=== PATIENT | male | born 1980 | race Caucasian/White ===

== ENCOUNTER 2017-09-09 11:23 | Emergency (ER) | payer OTHER ==
--- NOTE | 2017-09-09 12:01 | ED ---
Back Pain HPI - General Chief Complaint: Back Pain/Injury Stated Complaint: Hip Pain Time Seen by Provider: 09/09/17 11:45 Source: patient, RN notes reviewed Mode of arrival: ambulatory Limitations: no limitations - History of Present Illness Initial Comments: This is a 37-year-old male presents emergency Department chief complaint of left hip pain. Patient states the pain started last week or so has progressively gotten worse. States pain rates from this anterior left hip and radiates down to his left knee. He states like a lightning bolt. States pain is not constant says when it happens, debilitating. 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 He states when he does climb trees that his chainsaw hangs on his left hip. Patient denies any low back pain this time denies any bowel or bladder incontinence or retention. He doesn't at days been seeing a chiropractor over the last 3-4 months and regular basis. Patient has no mental abdominal pain, dysuria or hematuria. - Related Data Previous Rx's Medication Instructions Recorded Cyclobenzaprine [Flexeril] 10 mg PO TID PRN #15 tab 09/09/17 Ibuprofen [Motrin] 600 mg PO Q8HR PRN #30 tab 09/09/17 Allergies Allergy/AdvReac Type Severity Reaction Status Date / Time No Known Allergies Allergy Verified 09/09/17 11:40 Review of Systems ROS Statement: Those systems with pertinent positive or pertinent negative responses have been documented in the HPI. ROS Other: All systems not noted in ROS Statement are negative. Past Medical History Past Medical History: No Reported History History of Any Multi-Drug Resistant Organisms: None Reported Past Surgical History: Orthopedic Surgery Additional Past Surgical History / Comment(s): rt hand, vasectomy Past Psychological History: No Psychological Hx Reported Smoking Status: Current every day smoker Past Alcohol Use History: None Reported Past Drug Use History: None Reported General Exam Limitations: no limitations General appearance: alert, in no apparent distress Respiratory exam: Present: normal lung sounds bilaterally. Absent: respiratory distress, wheezes, rales, rhonchi, stridor Cardiovascular Exam: Present: regular rate, normal rhythm, normal heart sounds. Absent: systolic murmur, diastolic murmur, rubs, gallop, clicks GI/Abdominal exam: Present: soft, normal bowel sounds. Absent: distended, tenderness, guarding, rebound, rigid Extremities exam: Present: other (Lower extremity neurovascular intact pedal pulses equal bilaterally there is no discoloration or change warmth. Patient has no localized tenderness to left hip but has pain with left straight leg raise negative Tucker's test) Back exam: Present: full ROM. Absent: tenderness, paraspinal tenderness, vertebral tenderness Neurological exam: Present: reflexes normal. Absent: motor sensory deficit Skin exam: Present: warm, dry, intact, normal color. Absent: rash Course Vital Signs 09/09/17 11:36 Temperature 98.5 F Pulse Rate 89 Respiratory 20 Rate Blood Pressure 133/70 O2 Sat by Pulse 98 Oximetry Medical Decision Making - Medical Decision Making This is a 37-year-old male presented for left hip pain left leg pain. Patient states pain over the last week that radiates down his leg. Patient's pains were consistent with lumbar radiculopathy. Patient did have x-rays of his hip and lumbar spine lumbar spine unremarkable other some degenerative changes of his left hip. Patient's pain is intermittent and shooting type pain. Patient will be given a shot of steroids in the emergency department, started anti- inflammatories and muscle relaxers. He will follow-up with his PCP and chiropractor. Return parameters were discussed. Disposition Clinical Impression: Lumbar radiculopathy, Left hip pain Disposition: HOME SELF-CARE Condition: Stable Instructions: Lumbar Radiculopathy (ED) Additional Instructions: Please return to the Emergency Department if symptoms worsen or any other concerns. Prescriptions: Cyclobenzaprine [Flexeril] 10 mg PO TID PRN #15 tab PRN Reason: Muscle Spasm Ibuprofen [Motrin] 600 mg PO Q8HR PRN #30 tab PRN Reason: Pain Is patient prescribed a controlled substance at d/c from ED?: No Referrals: Brad Rowland MD [Primary Care Provider] - 1-2 days Time of Disposition: 12:41
--- NOTE | 2017-09-09 12:33 | XR ---
EXAMINATION TYPE: XR lumbosacral spine min 4V , 5 VIEWS DATE OF EXAM ORDERED: 09/09/2017 HISTORY: Pain. COMPARISON: None. FINDINGS: Vertebral body height and alignment are maintained. There is no spondylolysis or spondylol isthesis. No fractures are seen. The facets are unremarkable. The pedicles are intact. IMPRESSION: NORMAL LUMBOSACRAL SPINE.
--- NOTE | 2017-09-09 12:34 | XR ---
EXAMINATION TYPE: XR Hip Complete LT , 2 VIEWS DATE OF EXAM ORDERED: 09/09/2017 HISTORY: Pain. COMPARISON: None. FINDINGS: There is mild superior joint space loss. There is minimal degenerative change. No fracture or dislocation is seen. IMPRESSION: 1. NO ACUTE OSSEOUS LESION. 2. MILD DEGENERATIVE CHANGE.
[2017-09-09] MEDS ORDERED: DEXAMETHASONE SOD PHOSPHATE 10 MG/ML 1 ML VIAL IM STA (12:41)
[2017-09-09 13:18] VITALS: BP 129/80; PULSE 81; RESP 16; TEMP 98.6
== END 2017-09-09 13:18 | disposition home or self-care (01) ==
LOC: EC 11:23
DX: M54.16 Radiculopathy, lumbar region (principal); M16.12 Unilateral primary osteoarthritis, left hip; F17.200 Nicotine dependence, unspecified, uncomplicated
CPT/HCPCS: 99283; 96372; 72110; 73502; J1100

== ENCOUNTER 2017-09-14 15:12 | Emergency (ER) | payer OTHER ==
[2017-09-14 15:16] VITALS: RESP 18
--- NOTE | 2017-09-14 15:41 | ED ---
General Adult HPI - General Chief complaint: Back Pain/Injury Stated complaint: Hip pain Time Seen by Provider: 09/14/17 15:18 Source: patient, RN notes reviewed Mode of arrival: ambulatory Limitations: no limitations - History of Present Illness Initial comments: Patient's 37-year-old male presented to the emergency room today with a chief complaint of left-sided hip pain over the last 2 weeks. 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 He denies any specific injury or trauma. He does admit that over the last 2 weeks he has been experiencing some pain to the left hip. Does admit that it's worse and everyone is at work. He does not that he came here to the emergency room recently had x-rays obtained. He states he was given ibuprofen, no relief for his symptoms. States he has not got any better over the last few days. Patient states still expressing pain left hip that shoots down approximately mid thigh. Patient denies any injury or trauma. Denies any bowel or bladder Retention. Denies any saddle anesthesia. Patient denies any recent fever, chills, shortness of breath, chest pain, back pain, abdominal pain, nausea or vomiting, headaches or visual changes, or any other complaints. - Related Data Previous Rx's Medication Instructions Recorded Cyclobenzaprine [Flexeril] 10 mg PO TID PRN #15 tab 09/09/17 Ibuprofen [Motrin] 600 mg PO Q8HR PRN #30 tab 09/09/17 Dexamethasone 0.75 mg PO DIRECTED #12 tablet 09/14/17 Ibuprofen [Motrin] 600 mg PO Q6HR PRN #40 day 09/14/17 Allergies Allergy/AdvReac Type Severity Reaction Status Date / Time No Known Allergies Allergy Verified 09/14/17 15:17 Review of Systems ROS Statement: Those systems with pertinent positive or pertinent negative responses have been documented in the HPI. ROS Other: All systems not noted in ROS Statement are negative. Past Medical History Past Medical History: No Reported History History of Any Multi-Drug Resistant Organisms: None Reported Past Surgical History: Orthopedic Surgery Additional Past Surgical History / Comment(s): rt hand, vasectomy Past Psychological History: No Psychological Hx Reported Smoking Status: Current every day smoker Past Alcohol Use History: None Reported Past Drug Use History: None Reported General Exam - General Exam Comments Initial Comments: General: The patient is awake and alert, in no distress, and does not appear acutely ill. Eye: Pupils are equal, round and reactive to light, extra-ocular movements are intact. No nystagmus. There is normal conjunctiva bilaterally. No signs of icterus. Ears, nose, mouth and throat: There are moist mucous membranes and no oral lesions. Neck: The neck is supple. Musculoskeletal: Normal ROM. Patient does have tenderness over the left hip laterally and anteriorly. Patient strength is 5/5. Sensations are intact. Pulses are 2+. There is no tenderness to thoracic or lumbar spine. No SI joint tenderness. Redness or swelling. Neurological: A&O x 3. CN II-XII intact, There are no obvious motor or sensory deficits. Coordination appears grossly intact. Speech is normal. Skin: Skin is warm and dry and no rashes or lesions are noted. Psychiatric: Cooperative, appropriate mood & affect, normal judgment. Limitations: no limitations Course Vital Signs 09/14/17 15:14 Temperature 98.2 F Pulse Rate 110 H Respiratory 18 Rate Blood Pressure 123/79 O2 Sat by Pulse 97 Oximetry Medical Decision Making - Medical Decision Making Patient reexamined here today showing no signs of distress. His x-rays from the other day when he is here in the emergency room were reviewed showing some arthritic changes of the left hip. Patient's pain appears to be related to the left hip. It is admits some radicular pain shooting down. Skin on ibuprofen and Flexeril with little relief. Advised symptoms appear to be consistent with inflammation and will be continued on anti-inflammatories and given short prescription of steroids. Is advised following up with the orthopedic doctor over the next 2 days. Will be given a work note. Advised return if symptoms increase worsen. Disposition Clinical Impression: Left hip pain Disposition: HOME SELF-CARE Condition: Good Instructions: Arthralgia (ED) Additional Instructions: Please follow-up with orthopedic doctor over the next 2 days. Please use medications as prescribed return here to the emergency room if any symptoms increase or worsen. Prescriptions: Dexamethasone 0.75 mg PO DIRECTED #12 tablet Ibuprofen [Motrin] 600 mg PO Q6HR PRN #40 day PRN Reason: Pain Is patient prescribed a controlled substance at d/c from ED?: No Referrals: Brad Rowland MD [Primary Care Provider] - 1-2 days Jarod Da Silva DO [Doctor of Osteopathic Medicine] - 1-2 days Time of Disposition: 15:40
[2017-09-14 15:50] VITALS: BP 124/80; PULSE 96; TEMP 98.3
== END 2017-09-14 15:49 | disposition home or self-care (01) ==
LOC: EC 15:12
DX: M25.552 Pain in left hip (principal); F17.200 Nicotine dependence, unspecified, uncomplicated
CPT/HCPCS: 99283

== ENCOUNTER → 2017-10-09 | Outpatient (CLI) | payer OTHER ==
--- NOTE | 2017-10-09 23:08 | MR ---
EXAMINATION TYPE: MR hip LT wo con DATE OF EXAM: 10/09/2017 COMPARISON: Left hip x-ray September 09, 2017. HISTORY: Lt hip pain/strain Standard multiplanar, multisequence MRI departmental protocol Multiplanar, multisequence images of the pelvis focusing her left hip were acquired. FINDINGS: The bone marrow signal intensity shows heterogeneity consistent with red marrow reconversio n. No suspicious increased T2 signal or edema identified in the left hip. No linear hypointense T1 si gnal to suggest avascular necrosis. There are symmetric small presumed physiologic hip joint effusion s. There is symmetric mild axial joint space loss in both hips. No significant spurring or subchondra l cystic change is noted. Tiny fovea noted coronal image 6. The labrum appears grossly intact given l imitations of nonarthrogram study. No suspicious fluid level is greater lesser trochanters is identified. No suspicious groin adenopathy is seen. No significant bowel or fat containing inguinal hernia is present. Muscle bulk in the left thigh is felt within normal limits and symmetric to the opposite right side. There is no suspicious bowel dilatation. A few diverticula are seen in visualized sigmoid colon. Pros de la torre gland is felt within normal limits. Bladder is poorly distended. IMPRESSION: No significant finding is seen to account for patient's symptoms.
== END | disposition home or self-care (01) ==
LOC: RADMRIMAIN 19:26
PROVIDERS: ATTEND Orthopaedic Surgery
DX: S76.012A Strain of muscle, fascia and tendon of left hip, initial encounter (principal)

== ENCOUNTER 2017-11-05 19:04 | Emergency (ER) | payer OTHER ==
[2017-11-05] MEDS ORDERED: KETOROLAC 60 MG/2 ML VIAL IM STA (19:55)
[2017-11-05] MEDS ORDERED: traMADol 50 MG STARTER PACK 3 TAB BTL PO STA (19:55)
--- NOTE | 2017-11-05 20:00 | ED ---
General Adult HPI - General Chief complaint: Extremity Problem,Nontraumatic Stated complaint: Hip Pain Time Seen by Provider: 11/05/17 19:05 Source: patient, RN notes reviewed Mode of arrival: ambulatory Limitations: no limitations - History of Present Illness Initial comments: This is a 37-year-old male who presents emergency Department complaining of chronic hip pain. Patient states she's had no MRI noted to go with the problem is. Patient comes in today because he needs something for the pain and also he needs a work note because he can't lift his leg off the ground while standing and he does tree climbing for a living. Patient denies any numbness or weakness. Patient denies any urinary incontinence or retention. Patient denies any injury or trauma. Patient denies any back pain. - Related Data Previous Rx's Medication Instructions Recorded Cyclobenzaprine [Flexeril] 10 mg PO TID PRN #15 tab 09/09/17 Ibuprofen [Motrin] 600 mg PO Q8HR PRN #30 tab 09/09/17 Dexamethasone 0.75 mg PO DIRECTED #12 tablet 09/14/17 Ibuprofen [Motrin] 600 mg PO Q6HR PRN #40 day 09/14/17 Ketorolac [Toradol] 10 mg PO Q6HR #15 tab 11/05/17 traMADol HCL [Ultram] 50 mg PO Q6HR PRN 3 Days #10 tab 11/05/17 Allergies Allergy/AdvReac Type Severity Reaction Status Date / Time No Known Allergies Allergy Verified 11/05/17 19:26 Review of Systems ROS Statement: Those systems with pertinent positive or pertinent negative responses have been documented in the HPI. ROS Other: All systems not noted in ROS Statement are negative. Past Medical History Past Medical History: No Reported History History of Any Multi-Drug Resistant Organisms: None Reported Past Surgical History: Orthopedic Surgery Additional Past Surgical History / Comment(s): rt hand, vasectomy Past Psychological History: No Psychological Hx Reported Smoking Status: Current every day smoker Past Alcohol Use History: Occasional Past Drug Use History: None Reported General Exam - General Exam Comments Initial Comments: GENERAL Patient is well-developed and well-nourished. Patient is in mild distress. EYES Patient's pupils are equal and round. Extraocular motion is intact SKIN Unremarkable NEURO The patient is alert and oriented 3 PYSCH Patient has normal interpersonal interactions. MUSCULOSKELETAL Patient is unable to lift his leg off the bed or flex the hip at all. Passive range of motion is good with flexion of the hip but not internal/external rotation. Limitations: no limitations Course Vital Signs 11/05/17 19:24 Temperature 98.8 F Pulse Rate 93 Respiratory 18 Rate Blood Pressure 139/85 O2 Sat by Pulse 98 Oximetry Disposition Clinical Impression: Chronic hip pain Disposition: HOME SELF-CARE Condition: Good Instructions: Hip Pain (ED) Prescriptions: Ketorolac [Toradol] 10 mg PO Q6HR #15 tab traMADol HCL [Ultram] 50 mg PO Q6HR PRN 3 Days #10 tab PRN Reason: Pain Is patient prescribed a controlled substance at d/c from ED?: Yes When asked, does pt state using other controlled substances?: No If prescribed controlled substance>3 days was MAPS reviewed?: Prescribed <3 Days If opioid is for acute pain is fill amount 7 days or less?: Yes If Rx opioid, was Start Talking consent form obtained?: No Referrals: Brad Rowland MD [Primary Care Provider] - 1-2 days Time of Disposition: 20:00
[2017-11-05 20:36] VITALS: BP 118/72; PULSE 75; RESP 16; TEMP 98.5
== END 2017-11-05 20:43 | disposition home or self-care (01) ==
LOC: EC 19:04
DX: M25.559 Pain in unspecified hip (principal); G89.29 Other chronic pain; F17.200 Nicotine dependence, unspecified, uncomplicated; Z79.899 Other long term (current) drug therapy
CPT/HCPCS: 99283; 96372; J1885

== ENCOUNTER → 2017-11-29 | Outpatient (CLI) | payer OTHER ==
--- NOTE | 2017-11-29 08:50 | MR ---
EXAMINATION TYPE: MR lumbar spine wo con DATE OF EXAM: 11/29/2017 COMPARISON: Plain film 09/09/2017 HISTORY: Radiculopathy lumbosacral region TECHNIQUE: Multiplanar, multisequence images of the lumbar spine were acquired. L1-L2: Normal disc appearance without desiccation. No herniation, protrusion or disc bulging. No ca nal stenosis is present. Foramina are patent bilaterally. L2-L3: Normal disc appearance without desiccation. No herniation, protrusion or disc bulging. No ca nal stenosis is present. Foramina are patent bilaterally. L3-L4: There is a posterior disc herniation resulting in moderate to severe central canal stenosis. S ome facet arthropathy with hypertrophic change of the ligamentum flavum causes some posterior lateral mass effect on the thecal sac. No significant foraminal encroachment. Loss of disc height and signal noted. L4-L5: Posterior broad-based disc bulge contacts the anterior thecal sac. Small central posterior dis c protrusion noted at this level. No significant foraminal encroachment or central stenosis. Facet ar thropathy with hypertrophic change of the ligamentum flavum causes some posterior lateral mass effect on the thecal sac. Loss of disc height and signal is present compatible with disc desiccation and de generative disc disease L5-S1: Normal disc appearance without desiccation. No herniation, protrusion or disc bulging. No ca nal stenosis is present. Foramina are patent bilaterally. Lumbar segments are intact. No paraspinal masses are identified. Conus medullaris has a normal appe arance. IMPRESSION: Disc herniation L3-4. Degenerative disc disease as described.
== END | disposition home or self-care (01) ==
LOC: RADMRIMAIN 08:06
PROVIDERS: ATTEND Physical Medicine & Rehabilitation
DX: M48.061 Spinal stenosis, lumbar region without neurogenic claudication (principal); M51.26 Other intervertebral disc displacement, lumbar region; M51.36 Other intervertebral disc degeneration, lumbar region; M46.96 Unspecified inflammatory spondylopathy, lumbar region
CPT/HCPCS: 72148

== ENCOUNTER 2017-12-20 12:45 | Emergency (ER) | payer OTHER ==
[2017-12-20 13:08] VITALS: BP 142/88; PULSE 91; RESP 20; TEMP 98.6
--- NOTE | 2017-12-20 13:24 | ED ---
Back Pain HPI - General Chief Complaint: Back Pain/Injury Stated Complaint: back pain Time Seen by Provider: 12/20/17 13:12 Source: patient, RN notes reviewed, old records reviewed Limitations: no limitations - History of Present Illness Initial Comments: This is a 37-year-old male to the ER for eversion of back pain. Patient states he is not requiring any medication for back pain he had maybe a pulled muscle is working yesterday and he was unable to go to work. Patient states that he denies any neurological deficit denies any trauma. He does have history of chronic back pain MD Complaint: back pain -: days(s) Similar Symptoms Previously: Yes Place: home, work Radiation: none Severity: mild Severity scale (1-10): 3 Quality: aching Consistency: now resolved Improves With: immobilization Worsens With: movement Context: while lifting, turning/twisting - Related Data Previous Rx's Medication Instructions Recorded Cyclobenzaprine [Flexeril] 10 mg PO TID PRN #15 tab 09/09/17 Ibuprofen [Motrin] 600 mg PO Q8HR PRN #30 tab 09/09/17 Dexamethasone 0.75 mg PO DIRECTED #12 tablet 09/14/17 Ibuprofen [Motrin] 600 mg PO Q6HR PRN #40 day 09/14/17 Ketorolac [Toradol] 10 mg PO Q6HR #15 tab 11/05/17 traMADol HCL [Ultram] 50 mg PO Q6HR PRN 3 Days #10 tab 11/05/17 Allergies Allergy/AdvReac Type Severity Reaction Status Date / Time No Known Allergies Allergy Verified 12/20/17 13:04 Review of Systems ROS Statement: Those systems with pertinent positive or pertinent negative responses have been documented in the HPI. ROS Other: All systems not noted in ROS Statement are negative. Past Medical History Past Medical History: No Reported History Additional Past Medical History / Comment(s): back pain History of Any Multi-Drug Resistant Organisms: None Reported Past Surgical History: Orthopedic Surgery Additional Past Surgical History / Comment(s): rt hand, vasectomy Past Psychological History: No Psychological Hx Reported Smoking Status: Current every day smoker Past Alcohol Use History: Occasional Past Drug Use History: None Reported General Exam Limitations: no limitations General appearance: alert, in no apparent distress Head exam: Present: atraumatic, normocephalic, normal inspection Eye exam: Present: normal appearance, PERRL, EOMI. Absent: scleral icterus, conjunctival injection, periorbital swelling ENT exam: Present: normal exam, mucous membranes moist Neck exam: Present: normal inspection. Absent: tenderness, meningismus, lymphadenopathy Respiratory exam: Present: normal lung sounds bilaterally. Absent: respiratory distress, wheezes, rales, rhonchi, stridor Cardiovascular Exam: Present: regular rate, normal rhythm, normal heart sounds. Absent: systolic murmur, diastolic murmur, rubs, gallop, clicks GI/Abdominal exam: Present: soft, normal bowel sounds. Absent: distended, tenderness, guarding, rebound, rigid Extremities exam: Present: normal inspection, full ROM, normal capillary refill. Absent: tenderness, pedal edema, joint swelling, calf tenderness Back exam: Present: normal inspection Neurological exam: Present: alert, oriented X3, CN II-XII intact Psychiatric exam: Present: normal affect, normal mood Skin exam: Present: warm, dry, intact, normal color. Absent: rash Course Vital Signs 12/20/17 13:04 Temperature 98.6 F Pulse Rate 91 Respiratory 20 Rate Blood Pressure 142/88 O2 Sat by Pulse 98 Oximetry Medical Decision Making - Medical Decision Making 37 male the ER for evaluation of back pain. given Paz to recover, patient not requiring pain medication. Patient can be discharged home Disposition Clinical Impression: Mechanical back pain, Strain of lumbar region, Mid back pain Disposition: HOME SELF-CARE Condition: Good Instructions: Acute Low Back Pain (ED), Chronic Back Pain (ED) Is patient prescribed a controlled substance at d/c from ED?: No Referrals: Brad Rowland MD [Primary Care Provider] - 1-2 days
== END 2017-12-20 13:40 | disposition home or self-care (01) ==
LOC: EC 12:45
DX: S39.012A Strain of muscle, fascia and tendon of lower back, initial encounter (principal); F17.200 Nicotine dependence, unspecified, uncomplicated
CPT/HCPCS: 99283

== ENCOUNTER 2017-12-26 15:18 | Emergency (ER) | payer OTHER ==
[2017-12-26 15:21] VITALS: BP 135/86; PULSE 94; RESP 18; TEMP 97.5
--- NOTE | 2017-12-26 16:05 | ED ---
Back Pain HPI - General Chief Complaint: Back Pain/Injury Stated Complaint: Back Pain Time Seen by Provider: 12/26/17 15:52 Source: patient, RN notes reviewed, old records reviewed Limitations: no limitations - History of Present Illness Initial Comments: This is a 37-year-old male the ER with acute on chronic back pain. Patient currently going through outpatient treatment with orthopedics and going through physical rehabilitation. Patient states he was doing rehab yesterday and was unable to make it work this morning secondary to increased pain in his lower back and inability to ambulate without severe pain. Patient states his symptoms are much improved currently, here for work - Related Data Previous Rx's Medication Instructions Recorded Cyclobenzaprine [Flexeril] 10 mg PO TID PRN #15 tab 09/09/17 Ibuprofen [Motrin] 600 mg PO Q8HR PRN #30 tab 09/09/17 Dexamethasone 0.75 mg PO DIRECTED #12 tablet 09/14/17 Ibuprofen [Motrin] 600 mg PO Q6HR PRN #40 day 09/14/17 Ketorolac [Toradol] 10 mg PO Q6HR #15 tab 11/05/17 traMADol HCL [Ultram] 50 mg PO Q6HR PRN 3 Days #10 tab 11/05/17 Allergies Allergy/AdvReac Type Severity Reaction Status Date / Time No Known Allergies Allergy Verified 12/26/17 15:21 Review of Systems ROS Statement: Those systems with pertinent positive or pertinent negative responses have been documented in the HPI. ROS Other: All systems not noted in ROS Statement are negative. Past Medical History Past Medical History: No Reported History Additional Past Medical History / Comment(s): back pain History of Any Multi-Drug Resistant Organisms: None Reported Past Surgical History: Orthopedic Surgery Additional Past Surgical History / Comment(s): rt hand, vasectomy Past Psychological History: No Psychological Hx Reported Smoking Status: Current every day smoker Past Alcohol Use History: Occasional Past Drug Use History: None Reported General Exam Limitations: no limitations General appearance: alert, in no apparent distress Head exam: Present: atraumatic, normocephalic, normal inspection Eye exam: Present: normal appearance, PERRL, EOMI. Absent: scleral icterus, conjunctival injection, periorbital swelling ENT exam: Present: normal exam, mucous membranes moist Neck exam: Present: normal inspection. Absent: tenderness, meningismus, lymphadenopathy Respiratory exam: Present: normal lung sounds bilaterally. Absent: respiratory distress, wheezes, rales, rhonchi, stridor Cardiovascular Exam: Present: regular rate, normal rhythm, normal heart sounds. Absent: systolic murmur, diastolic murmur, rubs, gallop, clicks GI/Abdominal exam: Present: soft, normal bowel sounds. Absent: distended, tenderness, guarding, rebound, rigid Extremities exam: Present: normal inspection, full ROM, normal capillary refill. Absent: tenderness, pedal edema, joint swelling, calf tenderness Back exam: Present: normal inspection Neurological exam: Present: alert, oriented X3, CN II-XII intact Psychiatric exam: Present: normal affect, normal mood Skin exam: Present: warm, dry, intact, normal color. Absent: rash Course Vital Signs 12/26/17 15:19 Temperature 97.5 F L Pulse Rate 94 Respiratory 18 Rate Blood Pressure 135/86 O2 Sat by Pulse 99 Oximetry Medical Decision Making - Medical Decision Making 37 male the ER with acute on chronic back pain, patient states is coming in for work note, no new trauma. Patient is gets twinges his back and occasional. No neurological deficit, patient will be discharged Disposition Clinical Impression: Mechanical back pain, Strain of lumbar region, Mid back pain Disposition: HOME SELF-CARE Condition: Good Instructions: Acute Low Back Pain (ED), Chronic Back Pain (ED) Is patient prescribed a controlled substance at d/c from ED?: No Referrals: Brad Rowland MD [Primary Care Provider] - 1-2 days
--- NOTE | 2017-12-27 04:35 | CDI ---
Documentation Clarification OP Dear Dr. Safia Skaggs Please do addendum to ED report for missing HPI and Physical examination. Thank you, Yamile Brewer [employer] Duty Manager If you have any questions, please contact Bale Piler at [phone] [facility]
== END 2017-12-26 16:23 | disposition home or self-care (01) ==
LOC: EC 15:18
DX: S39.012A Strain of muscle, fascia and tendon of lower back, initial encounter (principal); F17.200 Nicotine dependence, unspecified, uncomplicated; X58.XXXA Exposure to other specified factors, initial encounter
CPT/HCPCS: 99283

== ENCOUNTER 2018-01-01 16:51 | Emergency (ER) | payer OTHER ==
[2018-01-01 16:58] VITALS: BP 122/75; PULSE 83; RESP 16; TEMP 98.3
--- NOTE | 2018-01-01 17:41 | ED ---
Back Pain HPI - General Chief Complaint: Back Pain/Injury Stated Complaint: BACK PAIN Time Seen by Provider: 01/01/18 17:07 Source: patient, RN notes reviewed, old records reviewed Limitations: no limitations - History of Present Illness Initial Comments: Patient is a 37-year-old male with chief complaint of chronic lower back pain. Patient reports that he has been seen by Dr. Ybarra and is undergoing physical therapy at this time for his lower back. He reports that the pain was worse today and he had a follow-up with his primary care physician and he is out of his pain medication. He reports that he called off of work today and is requesting a work note. Patient states that he's had no saddle anesthesias. He denies any other peripheral paresthesias. He reports that the pain is worse with prolonged standing and occasionally will have numbness and tingling going down leg with prolonged standing. He denies any recent falls or trauma. 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 Patient states that he plans to go back to work tomorrow. - Related Data Previous Rx's Medication Instructions Recorded Cyclobenzaprine [Flexeril] 10 mg PO TID PRN #15 tab 09/09/17 Ibuprofen [Motrin] 600 mg PO Q8HR PRN #30 tab 09/09/17 Dexamethasone 0.75 mg PO DIRECTED #12 tablet 09/14/17 Ibuprofen [Motrin] 600 mg PO Q6HR PRN #40 day 09/14/17 Ketorolac [Toradol] 10 mg PO Q6HR #15 tab 11/05/17 traMADol HCL [Ultram] 50 mg PO Q6HR PRN 3 Days #10 tab 11/05/17 Allergies Allergy/AdvReac Type Severity Reaction Status Date / Time No Known Allergies Allergy Verified 01/01/18 16:58 Review of Systems ROS Statement: Those systems with pertinent positive or pertinent negative responses have been documented in the HPI. ROS Other: All systems not noted in ROS Statement are negative. Past Medical History Past Medical History: No Reported History Additional Past Medical History / Comment(s): back pain History of Any Multi-Drug Resistant Organisms: None Reported Past Surgical History: Orthopedic Surgery Additional Past Surgical History / Comment(s): rt hand, vasectomy Past Psychological History: No Psychological Hx Reported Smoking Status: Current every day smoker Past Alcohol Use History: Occasional Past Drug Use History: None Reported General Exam - General Exam Comments Initial Comments: 37-year-old male. Alert and oriented. Patient appears in no acute distress. Limitations: no limitations General appearance: alert, in no apparent distress Head exam: Present: atraumatic, normocephalic, normal inspection Eye exam: Present: normal appearance, PERRL, EOMI. Absent: scleral icterus, conjunctival injection, periorbital swelling ENT exam: Present: normal exam, mucous membranes moist Neck exam: Present: normal inspection. Absent: tenderness, meningismus, lymphadenopathy Respiratory exam: Present: normal lung sounds bilaterally. Absent: respiratory distress, wheezes, rales, rhonchi, stridor Cardiovascular Exam: Present: regular rate, normal rhythm, normal heart sounds. Absent: systolic murmur, diastolic murmur, rubs, gallop, clicks Extremities exam: Present: normal inspection, full ROM, normal capillary refill. Absent: tenderness, pedal edema, joint swelling, calf tenderness Back exam: Present: normal inspection, other (No bruising or deformities noted lower spine. No tenderness palpation over the lower back.) Neurological exam: Present: alert, oriented X3, CN II-XII intact Psychiatric exam: Present: normal affect, normal mood Skin exam: Present: warm, dry, intact, normal color. Absent: rash Course Vital Signs 01/01/18 16:56 Temperature 98.3 F Pulse Rate 83 Respiratory 16 Rate Blood Pressure 122/75 O2 Sat by Pulse 93 L Oximetry Medical Decision Making - Medical Decision Making Patient is a 37-year-old male presents return today with acute exacerbation of chronic back pain. He reports he was out of his prescriptions for tramadol and ibuprofen and his being filled by Dr. Ybarra. He has been going to physical therapy. He did have an MRI earlier this year which showed him disc herniation of L3-L4 and L4-L5. Patient at this time reports he is only here for a work note. Patient states that he's had no saddle anesthesias. Lungs are clear and Patient patient's heart rate is normal. Vital signs are stable. He has full range of motion lower extremities and has no pulse deficit. Patient is given a work note. He requests no further medication EC did have a tramadol filled today by his information systems security specialist. Patient agrees to treatment plan will comply. Return parameters were discussed. Given a note for today. Disposition Clinical Impression: Mechanical back pain Disposition: HOME SELF-CARE Condition: Good Instructions: Chronic Back Pain (ED) Additional Instructions: Patient advised follow-up with primary care provider. Return to the emergency department if any alarming signs or symptoms occur. Is patient prescribed a controlled substance at d/c from ED?: No Referrals: Brad Rowland MD [Primary Care Provider] - 1-2 days Time of Disposition: 17:41
== END 2018-01-01 17:52 | disposition home or self-care (01) ==
LOC: EC 16:51
DX: G89.29 Other chronic pain (principal); M54.5 Low back pain; R20.0 Anesthesia of skin; R20.2 Paresthesia of skin; F17.200 Nicotine dependence, unspecified, uncomplicated
CPT/HCPCS: 99283

== ENCOUNTER 2018-01-04 18:57 | Emergency (ER) | payer OTHER ==
[2018-01-04 19:02] VITALS: BP 121/74; PULSE 90; RESP 18; TEMP 98.2
--- NOTE | 2018-01-04 19:27 | ED ---
General Adult HPI - General Chief complaint: Back Pain/Injury Stated complaint: Back pain Source: patient, RN notes reviewed, old records reviewed Mode of arrival: ambulatory Limitations: no limitations - History of Present Illness Initial comments: 37-year-old male patient with long history of documented back pain presents to ED. Patient has been following up with Dr. Ybarra with his back pain and has previously been diagnosed with L3L4 disc herniation via MRI. Patient's back pain is overall well controlled with physical therapy, and anti-inflammatory/ analgesic. Patient's chief complaint today is that he woke up in to much back pain to go to work, presents now to receive a work note. Patient denies any new signs or symptoms including new paresthesias, lower or upper extremity weakness, saddle anesthesia, loss of bowel or bladder control, chest pain, shortness of breath. Patient denies all other complaints. Systemic: Pt denies fatigue, myalgia, fever/chills, rash. Pt denies weakness, night sweats, weight loss. Neuro: Pt denies headache, visual disturbances, syncope or pre-syncope. HEENT: Pt denies ocular discharge or irritation, otalgia, rhinorrhea, pharyngitis or notable lymphadenopathy. Cardiopulmonary: Pt denies chest pain, SOB, heart palpitations, dyspnea on exertion. Abdominal/GI: Pt denies abdominal pain, n/v/d. : Pt denies dysuria, burning w/ urination, frequency/urgency. Denies new onset urinary or bowel incontinence. MSK: Pt denies myalgia, loss of strength or function in extremities. - Related Data Previous Rx's Medication Instructions Recorded Cyclobenzaprine [Flexeril] 10 mg PO TID PRN #15 tab 09/09/17 Ibuprofen [Motrin] 600 mg PO Q8HR PRN #30 tab 09/09/17 Dexamethasone 0.75 mg PO DIRECTED #12 tablet 09/14/17 Ibuprofen [Motrin] 600 mg PO Q6HR PRN #40 day 09/14/17 Ketorolac [Toradol] 10 mg PO Q6HR #15 tab 11/05/17 traMADol HCL [Ultram] 50 mg PO Q6HR PRN 3 Days #10 tab 11/05/17 Allergies Allergy/AdvReac Type Severity Reaction Status Date / Time No Known Allergies Allergy Verified 01/01/18 16:58 Review of Systems ROS Statement: Those systems with pertinent positive or pertinent negative responses have been documented in the HPI. ROS Other: All systems not noted in ROS Statement are negative. Past Medical History Past Medical History: No Reported History Additional Past Medical History / Comment(s): chronic back pain History of Any Multi-Drug Resistant Organisms: None Reported Past Surgical History: Orthopedic Surgery Additional Past Surgical History / Comment(s): rt hand, vasectomy Past Psychological History: No Psychological Hx Reported Smoking Status: Current every day smoker Past Alcohol Use History: Occasional Past Drug Use History: None Reported General Exam - General Exam Comments Initial Comments: Constitutional: NAD, AOX3, Pt has pleasant affect. HEENT: NC/AT, trachea midline, neck supple, no lymphadenopathy. Posterior pharynx non erythematous, without exudates. External ears appear normal, without discharge. Mucous membranes moist. Eyes PERRLA, EOM intact. There is no scleral icterus. No pallor noted. Cardiopulmonary: RRR, no murmurs, rubs or gallops, no JVD noted. Lungs CTAB in anterior and posterior grant. No peripheral edema. Abdominal exam: Abdomen soft and non-distended. Abdomen non-tender to palpation in all 4 quadrants. Bowel sounds active in LLQ. No hepatosplenomegaly. Neuro: CN II-XII grossly intact. No facial droop. MSK: Heel to toe walking intact. Patellar reflexes +2 bilaterally. Psoas and quadriceps strength +5 bilaterally. Patient has full active range of motion in upper and lower extremities. Straight leg raise negative bilaterally. Patient sensation intact in upper and lower extremities. Patient has full range of motion spine nontender to palpation cervical, thoracic, lumbar, paraspinal muscles also nontender to palpation. Limitations: no limitations Course Vital Signs 01/04/18 18:59 Temperature 98.2 F Pulse Rate 90 Respiratory 18 Rate Blood Pressure 121/74 O2 Sat by Pulse 98 Oximetry Medical Decision Making - Medical Decision Making 37-year-old male patient with a long past medical history of back pain presents to emergency room in order to receive note excusing himself from work today. Patient works a job requiring a large amount of physical exertion. If the patient wakes up and feels as if he is in too much pain or decreased ROM to go to work the patient calls offand then must receive a note excusing him from the emergency room. Patient has been seen in this ER multiple times for this problem. Patient denies any complaints. The complaints denied include but not limited too: new paresthesias, new weakness, loss of bowel or bladder control, saddle anesthesia. Physical exam did not display any worrisome findings for acute back injury. Patient denies any recent falls or trauma. MRI reviewed and confirmed history. Patient to follow up with primary care physician and Dr. Ybarra in 1-2 days. Patient written work note. Case discussed with Dr. Marte. Disposition Clinical Impression: Lumbar back pain Disposition: HOME SELF-CARE Condition: Good Instructions: Chronic Back Pain (ED) Additional Instructions: Patient to adhere to previously discussed treatment plan. Patient to follow up with PCP and Dr. Ybarra in 1-2 days. Patient to return to ED if symptoms do not improve. Is patient prescribed a controlled substance at d/c from ED?: No Referrals: Brad Rowland MD [Primary Care Provider] - 1-2 days Time of Disposition: 19:36
== END 2018-01-04 19:48 | disposition home or self-care (01) ==
LOC: EC 18:57
DX: M54.5 Low back pain (principal); F17.200 Nicotine dependence, unspecified, uncomplicated
CPT/HCPCS: 99283

== ENCOUNTER 2018-01-15 15:55 | Emergency (ER) | payer OTHER ==
[2018-01-15 16:02] VITALS: BP 131/78; PULSE 100; RESP 20; TEMP 98.3
--- NOTE | 2018-01-15 16:27 | ED ---
General Adult HPI - General Chief complaint: Back Pain/Injury Stated complaint: back pain Time Seen by Provider: 01/15/18 16:17 Source: patient, RN notes reviewed Mode of arrival: ambulatory Limitations: no limitations - History of Present Illness Initial comments: Patient 37-year-old male presenting to the emergency room today with a chief complaint of a work note. Patient does admit that he has a history of chronic back pain. He states he does [facility] Dr[facility] Dutta. Patient states that he is unable to see him today. He does admit that he had a physical today at work yesterday. He works as a tree professional development director. He was climbing. Patient denies any injury or trauma. He states he was just very sore today when he was trying to get up. He states he was unable to going to work. He states that is his reason for coming to the emergency room today is for a work note. Patient denies any bowel or bladder incontinence retention. Denies any saddle anesthesia. Complaints are symptoms at this time. Patient denies any recent fever, chills, shortness of breath, chest pain, abdominal pain , nausea or vomiting, numbness or tingling, headaches or visual changes, or any other complaints. - Related Data Home Medications Medication Instructions Recorded Confirmed Ibuprofen [Motrin] 800 mg PO TID PRN 01/10/18 01/10/18 Previous Rx's Medication Instructions Recorded traMADol HCL [Ultram] 50 mg PO Q6HR PRN 3 Days #10 tab 11/05/17 Allergies Allergy/AdvReac Type Severity Reaction Status Date / Time No Known Allergies Allergy Verified 01/15/18 16:02 Review of Systems ROS Statement: Those systems with pertinent positive or pertinent negative responses have been documented in the HPI. ROS Other: All systems not noted in ROS Statement are negative. Past Medical History Past Medical History: No Reported History Additional Past Medical History / Comment(s): chronic back pain History of Any Multi-Drug Resistant Organisms: None Reported Past Surgical History: Orthopedic Surgery Additional Past Surgical History / Comment(s): rt hand, vasectomy Past Psychological History: No Psychological Hx Reported Smoking Status: Current every day smoker Past Alcohol Use History: Occasional Past Drug Use History: None Reported General Exam - General Exam Comments Initial Comments: General: The patient is awake and alert, in no distress, and does not appear acutely ill. Neck: The neck is supple, there is no tenderness or JVD. Cardiovascular: There is a regular rate and rhythm. No murmur, rub or gallop is appreciated. Respiratory: Lungs are clear to auscultation, respirations are non-labored, breath sounds are equal. No wheezes, stridor, rales, or rhonchi. Musculoskeletal: Normal ROM, no tenderness. Sensation intact. Strength 5/5. Pulses equal bilaterally 2+. Neurological: A&O x 3. CN II-XII intact, There are no obvious motor or sensory deficits. Coordination appears grossly intact. Speech is normal. Skin: Skin is warm and dry and no rashes or lesions are noted. Psychiatric: Cooperative, appropriate mood & affect, normal judgment. Limitations: no limitations Course Vital Signs 01/15/18 15:59 Temperature 98.3 F Pulse Rate 100 Respiratory 20 Rate Blood Pressure 131/78 O2 Sat by Pulse 99 Oximetry Medical Decision Making - Medical Decision Making Patient is resting comfortably in the room. Patient admits that he is only here for work no. He denies any new symptoms. He denies any bowel or bladder incontinence retention. Denies any saddle anesthesia. Patient leaving work advised faulted orthopedic doctor. Disposition Clinical Impression: Acute exacerbation of chronic low back pain Disposition: HOME SELF-CARE Condition: Good Instructions: Chronic Back Pain (ED) Additional Instructions: Please use medication as discussed. Please follow-up with family doctor in the next 2 days of symptoms have not improved. Please return to emergency room if the symptoms increase or worsen or for any other concerns. Is patient prescribed a controlled substance at d/c from ED?: No Referrals: Brad Rowland MD [Primary Care Provider] - 1-2 days Time of Disposition: 16:26
== END 2018-01-15 16:35 | disposition home or self-care (01) ==
LOC: EC 15:55
DX: G89.29 Other chronic pain (principal); M54.5 Low back pain; F17.200 Nicotine dependence, unspecified, uncomplicated
CPT/HCPCS: 99283

== ENCOUNTER 2018-02-05 15:53 | Emergency (ER) | payer OTHER ==
[2018-02-05 16:09] VITALS: BP 124/77; PULSE 92; RESP 18; TEMP 98.8
--- NOTE | 2018-02-05 16:46 | ED ---
Back Pain HPI - General Chief Complaint: Back Pain/Injury Stated Complaint: back pain Time Seen by Provider: 02/05/18 16:15 Source: patient, RN notes reviewed, old records reviewed Limitations: no limitations - History of Present Illness Initial Comments: Patient is a 37-year-old male well-known to emergency department for back pain. Patient presents emergency department today requesting a work note. Patient states that he felt like the back pain was too severe today so we cannot work. Patient states that he was told by his neurologist Dr. Lara to comes emergency Department when this would occur for work. Patient reports that on scheduled to have injections in his back. He is waiting for this for 6 months. He denies any saddle anesthesias. Patient denies any recent fever, chills, shortness of breath, chest pain, back pain, abdominal pain, nausea vomiting, numbness or tingling, dysuria or hematuria, constipation or diarrhea, headaches or visual changes, or any other current symptoms - Related Data Home Medications Medication Instructions Recorded Confirmed Ibuprofen [Motrin] 800 mg PO TID PRN 01/10/18 01/16/18 Previous Rx's Medication Instructions Recorded traMADol HCL [Ultram] 50 mg PO Q6HR PRN 3 Days #10 tab 11/05/17 predniSONE 40 mg PO DAILY #8 tab 01/16/18 Allergies Allergy/AdvReac Type Severity Reaction Status Date / Time No Known Allergies Allergy Verified 02/05/18 16:09 Review of Systems ROS Statement: Those systems with pertinent positive or pertinent negative responses have been documented in the HPI. ROS Other: All systems not noted in ROS Statement are negative. Past Medical History Past Medical History: No Reported History Additional Past Medical History / Comment(s): chronic back pain, IBS History of Any Multi-Drug Resistant Organisms: None Reported Past Surgical History: Orthopedic Surgery Additional Past Surgical History / Comment(s): rt hand, vasectomy Past Psychological History: No Psychological Hx Reported Smoking Status: Current every day smoker Past Alcohol Use History: Rare Past Drug Use History: None Reported General Exam - General Exam Comments Initial Comments: 37-year-old male, alert and oriented. No acute distress. Limitations: no limitations General appearance: alert, in no apparent distress Head exam: Present: atraumatic, normocephalic, normal inspection Eye exam: Present: normal appearance, PERRL, EOMI. Absent: scleral icterus, conjunctival injection, periorbital swelling ENT exam: Present: normal exam, mucous membranes moist Neck exam: Present: normal inspection. Absent: tenderness, meningismus, lymphadenopathy Respiratory exam: Present: normal lung sounds bilaterally. Absent: respiratory distress, wheezes, rales, rhonchi, stridor Cardiovascular Exam: Present: regular rate, normal rhythm, normal heart sounds. Absent: systolic murmur, diastolic murmur, rubs, gallop, clicks GI/Abdominal exam: Present: soft, normal bowel sounds, other (Patient is no tenderness. Is able to ambulate without difficulty. Reports pain radiates from the lower back towards his leg.). Absent: distended, tenderness, guarding , rebound, rigid Extremities exam: Present: normal inspection Back exam: Present: normal inspection Neurological exam: Present: alert, oriented X3, CN II-XII intact Course Vital Signs 02/05/18 16:06 Temperature 98.8 F Pulse Rate 92 Respiratory 18 Rate Blood Pressure 124/77 O2 Sat by Pulse 98 Oximetry Medical Decision Making - Medical Decision Making This Patient is a 37-year-old male. Alert and oriented. Patient appears in no acute distress, presents today for a work note. He reports having severe back pain and he couldn't work today. Patient has been to ED for multiple times for similar complaints. He wants no further pain medication. Denies saddle Anesthesias. No tenderness to palpation of spine. We'll stand without difficulty. Full range motion of his legs normal pulses distally. At this time Patient be discharged with a work note. I discussed all up with his neurologist. All questions answered her parameters were discussed. Disposition Clinical Impression: Sciatica Disposition: HOME SELF-CARE Condition: Good Instructions: Chronic Back Pain (ED) Additional Instructions: Follow-up with your neurologist. Return to emergency department if any alarming signs or symptoms occur. Is patient prescribed a controlled substance at d/c from ED?: No Referrals: Brad Rowland MD [Primary Care Provider] - 1-2 days Time of Disposition: 16:45
== END 2018-02-05 17:09 | disposition home or self-care (01) ==
LOC: EC 15:53
DX: M54.30 Sciatica, unspecified side (principal); F17.200 Nicotine dependence, unspecified, uncomplicated
CPT/HCPCS: 99283

== ENCOUNTER 2018-02-11 14:19 | Emergency (ER) | payer OTHER ==
[2018-02-11 14:31] VITALS: BP 122/80; PULSE 89; RESP 18; TEMP 98.5
--- NOTE | 2018-02-11 15:58 | ED ---
Back Pain HPI - General Chief Complaint: Back Pain/Injury Stated Complaint: Lower back pain Time Seen by Provider: 02/11/18 15:44 Source: patient, RN notes reviewed Mode of arrival: ambulatory Limitations: no limitations - History of Present Illness Initial Comments: 37-year-old male presents emergency Department chief complaint of back pain. Patient has chronic back issues. Patient states cannot go to work today and is requesting a work no. Patient denies any trauma. Denies any bowel bladder incontinence or retention. Patient is currently in physical therapy and if he fails therapy he is scheduled for injections and then possible surgery. Patient states this is known issues of his L3 4 and 5. - Related Data Home Medications Medication Instructions Recorded Confirmed Ibuprofen [Motrin] 800 mg PO TID PRN 01/10/18 02/11/18 Previous Rx's Medication Instructions Recorded traMADol HCL [Ultram] 50 mg PO Q6HR PRN 3 Days #10 tab 11/05/17 Allergies Allergy/AdvReac Type Severity Reaction Status Date / Time No Known Allergies Allergy Verified 02/11/18 15:53 Review of Systems ROS Statement: Those systems with pertinent positive or pertinent negative responses have been documented in the HPI. ROS Other: All systems not noted in ROS Statement are negative. Past Medical History Past Medical History: No Reported History Additional Past Medical History / Comment(s): chronic back pain, IBS History of Any Multi-Drug Resistant Organisms: None Reported Past Surgical History: Orthopedic Surgery Additional Past Surgical History / Comment(s): rt hand, vasectomy Past Psychological History: No Psychological Hx Reported Smoking Status: Current every day smoker Past Alcohol Use History: Rare Past Drug Use History: None Reported General Exam Limitations: no limitations General appearance: alert, in no apparent distress Neck exam: Present: normal inspection. Absent: tenderness, meningismus, lymphadenopathy Respiratory exam: Present: normal lung sounds bilaterally. Absent: respiratory distress, wheezes, rales, rhonchi, stridor Cardiovascular Exam: Present: regular rate, normal rhythm, normal heart sounds. Absent: systolic murmur, diastolic murmur, rubs, gallop, clicks GI/Abdominal exam: Present: soft, normal bowel sounds. Absent: distended, tenderness, guarding, rebound, rigid Extremities exam: Present: other (Lower extremity strength equal bilaterally neurovascular intact) Back exam: Present: full ROM (Mild discomfort), tenderness (Moderate lumbar), paraspinal tenderness. Absent: vertebral tenderness Course Vital Signs 02/11/18 14:27 Temperature 98.5 F Pulse Rate 89 Respiratory 18 Rate Blood Pressure 122/80 O2 Sat by Pulse 97 Oximetry Medical Decision Making - Medical Decision Making 37-year-old male presented for low back pain. He has a chronic back pain with no new injuries no new symptoms other than worsening pain. Patient is requesting work no. This will be provided. Patient follow-up with Dr. Oliverosi his pain management and return for increasing symptoms. Disposition Clinical Impression: Acute exacerbation of chronic low back pain Disposition: HOME SELF-CARE Condition: Stable Instructions: Chronic Back Pain (ED) Additional Instructions: Please return to the Emergency Department if symptoms worsen or any other concerns. Is patient prescribed a controlled substance at d/c from ED?: No Referrals: Brad Rowland MD [Primary Care Provider] - 1-2 days
== END 2018-02-11 16:06 | disposition home or self-care (01) ==
LOC: EC 14:19
DX: G89.29 Other chronic pain (principal); M54.5 Low back pain; F17.200 Nicotine dependence, unspecified, uncomplicated
CPT/HCPCS: 99283

== ENCOUNTER 2018-03-07 15:01 | Emergency (ER) | payer OTHER ==
[2018-03-07 15:05] VITALS: BP 124/75; PULSE 97; RESP 16; TEMP 98.2
--- NOTE | 2018-03-07 16:12 | ED ---
General Adult HPI - General Chief complaint: Back Pain/Injury Stated complaint: Lower back pain Source: patient, RN notes reviewed, old records reviewed Mode of arrival: ambulatory Limitations: no limitations - History of Present Illness Initial comments: 37-year-old male patient past medical history of chronic lumbar back pain presents to ED with acute exacerbation of back pain this morning prompting him to call off work, patient primary reason of ED presentation is to receive a work note. Patient frequently presents to ER for this issue. 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 Patient follows up with physical therapy and his primary care physician for pain management and evaluation. Patient reports that while bending over to tie his shoes today he felt a pain in his right paralumbar spine in the radiology down his right posterior leg. Patient reports that this is his typical back pain. Patient denies any recent falls or trauma. Patient denies any new or concerning symptoms. Patient denies IV drug use, fever chills, loss of bowel or bladder control. Patient is ambulatory. Patient denies all other complaints. Systemic: Pt denies fatigue, myalgia, fever/chills, rash. Pt denies weakness, night sweats, weight loss. Neuro: Pt denies headache, visual disturbances, syncope or pre-syncope. HEENT: Pt denies ocular discharge or irritation, otalgia, rhinorrhea, pharyngitis or notable lymphadenopathy. Cardiopulmonary: Pt denies chest pain, SOB, heart palpitations, dyspnea on exertion. Abdominal/GI: Pt denies abdominal pain, n/v/d. : Pt denies dysuria, burning w/ urination, frequency/urgency. Denies new onset urinary or bowel incontinence. MSK: Pt denies myalgia, loss of strength or function in extremities. Neuro: Pt denies new onset weakness, . - Related Data Home Medications Medication Instructions Recorded Confirmed Ibuprofen [Motrin] 800 mg PO TID PRN 01/10/18 02/11/18 Previous Rx's Medication Instructions Recorded traMADol HCL [Ultram] 50 mg PO Q6HR PRN 3 Days #10 tab 11/05/17 Allergies Allergy/AdvReac Type Severity Reaction Status Date / Time No Known Allergies Allergy Verified 03/07/18 15:05 Review of Systems ROS Statement: Those systems with pertinent positive or pertinent negative responses have been documented in the HPI. ROS Other: All systems not noted in ROS Statement are negative. Past Medical History Past Medical History: No Reported History Additional Past Medical History / Comment(s): chronic back pain, IBS History of Any Multi-Drug Resistant Organisms: None Reported Past Surgical History: Orthopedic Surgery Additional Past Surgical History / Comment(s): rt hand, vasectomy Past Psychological History: No Psychological Hx Reported Smoking Status: Current every day smoker Past Alcohol Use History: Rare Past Drug Use History: None Reported General Exam - General Exam Comments Initial Comments: Constitutional: NAD, AOX3, Pt has pleasant affect. HEENT: NC/AT, trachea midline, neck supple, no lymphadenopathy. Posterior pharynx non erythematous, without exudates. External ears appear normal, without discharge. Mucous membranes moist. Eyes PERRLA, EOM intact. There is no scleral icterus. No pallor noted. Cardiopulmonary: RRR, no murmurs, rubs or gallops, no JVD noted. Lungs CTAB in anterior and posterior grant. No peripheral edema. Abdominal exam: Abdomen soft and non-distended. Abdomen non-tender to palpation in all 4 quadrants. Bowel sounds active in LLQ. No hepatosplenomegaly. No ecchymosis Neuro: CN II-XII grossly intact. No nuchal rigidity. MSK: Psoas and quadriceps stregnth 5/5 bilaterally. Heel to toe walking intact. Patellar and achillies reflex 2/4 bilaterally. Straight leg raise negative bilaterally. No posterior calf tenderness bilaterally, homans sign negative bilaterally. Posterior tibialis and radial pulse +2 bilaterally. Sensation intact in upper and lower extremities. Full active ROM in upper and lower extremities. Limitations: no limitations Course Vital Signs 03/07/18 15:03 Temperature 98.2 F Pulse Rate 97 Respiratory 16 Rate Blood Pressure 124/75 O2 Sat by Pulse 99 Oximetry Medical Decision Making - Medical Decision Making 37-year-old male patient past medical history of chronic lumbar back pain presents to ED with acute exacerbation of back pain this morning prompting him to call off work, patient primary reason of ED presentation is to receive a work note. Patient reports that while bending over to tie his shoes today he felt a pain in his right paralumbar spine in the radiology down his right posterior leg. Patient reports that this is his typical back pain. Patient denies any recent falls or trauma. Patient denies any new or concerning symptoms. Physical exam did not display acute pathology. Patient written work note. Patient to follow up with primary care provider in 1-2 days. Patient to return to ED if new signs or symptoms develop or if condition worsens in any way. Case discussed with Dr. Horton. Disposition Clinical Impression: Chronic lumbar pain Disposition: HOME SELF-CARE Condition: Good Instructions: Chronic Back Pain (ED) Additional Instructions: Patient to adhere to previously discussed treatment plan and will take medication(s) as directed. Patient to follow up with PCP in 1-2 days. Patient to return to ED if symptoms do not improve. Is patient prescribed a controlled substance at d/c from ED?: No Referrals: Brad Rowland MD [Primary Care Provider] - 1-2 days Time of Disposition: 16:22
== END 2018-03-07 16:28 | disposition home or self-care (01) ==
LOC: EC 15:01
DX: G89.29 Other chronic pain (principal); M54.5 Low back pain; F17.200 Nicotine dependence, unspecified, uncomplicated
CPT/HCPCS: 99283

== ENCOUNTER 2018-03-08 07:42 | Emergency (ER) | payer OTHER ==
[2018-03-08 07:45] VITALS: BP 131/84; PULSE 83; RESP 16; TEMP 97.9
--- NOTE | 2018-03-08 08:14 | ED ---
Back Pain HPI - General Chief Complaint: Back Pain/Injury Stated Complaint: Lower Back Pain Time Seen by Provider: 03/08/18 08:04 Source: patient, RN notes reviewed Mode of arrival: ambulatory Limitations: no limitations - History of Present Illness Initial Comments: 37-year-old male presents emergency Department chief complaint of back pain. Patient has on-and-off back issues. 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 Patient denies any bowel bladder incontinence or retention. Denies any saddle anesthesias. He states it's just in his low back. Patient states she does not need any medications for this. He does admit that he was seen yesterday for a work note but states that he does not feel much better today and he does not feel comfortable going to work. He has no abdominal pain patient offers no other complaints. - Related Data Home Medications Medication Instructions Recorded Confirmed Ibuprofen [Motrin] 800 mg PO TID PRN 01/10/18 02/11/18 Previous Rx's Medication Instructions Recorded traMADol HCL [Ultram] 50 mg PO Q6HR PRN 3 Days #10 tab 11/05/17 Allergies Allergy/AdvReac Type Severity Reaction Status Date / Time No Known Allergies Allergy Verified 03/08/18 07:45 Review of Systems ROS Statement: Those systems with pertinent positive or pertinent negative responses have been documented in the HPI. ROS Other: All systems not noted in ROS Statement are negative. Past Medical History Past Medical History: No Reported History Additional Past Medical History / Comment(s): chronic back pain, IBS History of Any Multi-Drug Resistant Organisms: None Reported Past Surgical History: Orthopedic Surgery Additional Past Surgical History / Comment(s): rt hand, vasectomy Past Psychological History: No Psychological Hx Reported Smoking Status: Current every day smoker Past Alcohol Use History: Rare Past Drug Use History: None Reported General Exam Limitations: no limitations General appearance: alert, in no apparent distress Head exam: Present: atraumatic, normocephalic, normal inspection Respiratory exam: Present: normal lung sounds bilaterally. Absent: respiratory distress, wheezes, rales, rhonchi, stridor Cardiovascular Exam: Present: regular rate, normal rhythm, normal heart sounds. Absent: systolic murmur, diastolic murmur, rubs, gallop, clicks GI/Abdominal exam: Present: soft, normal bowel sounds. Absent: distended, tenderness, guarding, rebound, rigid Extremities exam: Present: other (Lower extremity strength equal bilaterally, neurovascular intact) Back exam: Present: normal inspection, full ROM, tenderness (Mild right lumbar) , paraspinal tenderness. Absent: vertebral tenderness Neurological exam: Present: alert, oriented X3, CN II-XII intact, reflexes normal. Absent: motor sensory deficit Course Vital Signs 03/08/18 07:43 Temperature 97.9 F Pulse Rate 83 Respiratory 16 Rate Blood Pressure 131/84 O2 Sat by Pulse 99 Oximetry Medical Decision Making - Medical Decision Making 37-year-old male presented for low back pain. Patient does have a history of chronic low back pain. Patient is neurologically intact, no red flag symptoms. Patient will be provided a work note. Patient will continue current treatment as directed. Disposition Clinical Impression: Chronic lumbar pain Disposition: HOME SELF-CARE Condition: Stable Instructions: Chronic Back Pain (ED) Additional Instructions: Please return to the Emergency Department if symptoms worsen or any other concerns. Is patient prescribed a controlled substance at d/c from ED?: No Referrals: Brad Rowland MD [Primary Care Provider] - 1-2 days Time of Disposition: 08:14
== END 2018-03-08 08:20 | disposition home or self-care (01) ==
LOC: EC 07:42
DX: G89.29 Other chronic pain (principal); M54.5 Low back pain; F17.200 Nicotine dependence, unspecified, uncomplicated
CPT/HCPCS: 99283

== ENCOUNTER 2018-03-11 08:06 | Emergency (ER) | payer OTHER ==
[2018-03-11 08:09] VITALS: BP 134/84; PULSE 75; RESP 16; TEMP 98.2
--- NOTE | 2018-03-11 08:27 | ED ---
Back Pain HPI - General Chief Complaint: Back Pain/Injury Stated Complaint: Lower back pain Time Seen by Provider: 03/11/18 08:17 Source: patient, RN notes reviewed, old records reviewed Limitations: no limitations - History of Present Illness Initial Comments: 37-year-old male presents today for evaluation for chronic back pain. Patient states that he needs a work note. 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 Patient states that when he has back pain really doesn't feel like he is comfortable going to work she comes emergency department frequently for work note. He states he is followed at Dr. Ybarra in regards to pain management. He denies any saddle anesthesias, weight loss, nausea or vomiting or abdominal pain. Patient states that he's had no fevers or chills. Patient states that this pain is similar to all of his chronic pain. He seemed to be worse certain movements. She reports his lower back pain radiating down the right leg. - Related Data Home Medications Medication Instructions Recorded Confirmed Ibuprofen [Motrin] 800 mg PO TID PRN 01/10/18 03/08/18 Previous Rx's Medication Instructions Recorded traMADol HCL [Ultram] 50 mg PO Q6HR PRN 3 Days #10 tab 11/05/17 Allergies Allergy/AdvReac Type Severity Reaction Status Date / Time No Known Allergies Allergy Verified 03/11/18 08:09 Review of Systems ROS Statement: Those systems with pertinent positive or pertinent negative responses have been documented in the HPI. ROS Other: All systems not noted in ROS Statement are negative. Past Medical History Past Medical History: No Reported History Additional Past Medical History / Comment(s): chronic back pain, IBS History of Any Multi-Drug Resistant Organisms: None Reported Past Surgical History: Orthopedic Surgery Additional Past Surgical History / Comment(s): rt hand, vasectomy Past Psychological History: No Psychological Hx Reported Smoking Status: Current every day smoker Past Alcohol Use History: Rare Past Drug Use History: None Reported General Exam - General Exam Comments Initial Comments: 37-year-old male. Alert and oriented. No distress. General: Well appearing, well nourished, in no distress. Oriented x 3, normal mood and affect . Ambulating without difficulty. Skin: Good turgor, no rash, unusual bruising or prominent lesions Hair: Normal texture and distribution. HEENT: Head: Normocephalic, atraumatic, no visible or palpable masses, depressions, or scaring. Heart: No cardiomegaly or thrills; regular rate and rhythm, no murmur or gallop Lungs: Clear to auscultation and percussion Back: Spine normal without deformity. Lumbar spinal tenderness and right sciatic notch tenderness in the waiting without difficulty. Rectal: Normal sphincter tone, no hemorrhoids or masses palpable Extremities: No amputations or deformities, cyanosis, edema or varicosities, peripheral pulses intact Musculoskeletal: Normal gait and station. No misalignment, asymmetry, crepitation, defects, tenderness, masses, effusions, decreased range of motion. Neurologic: CN 2-12 normal. Sensation to pain, touch, and proprioception normal Psychiatric: Oriented X3, intact recent and remote memory, judgment and insight , normal mood and affect. Limitations: no limitations Course Vital Signs 03/11/18 08:08 Temperature 98.2 F Pulse Rate 75 Respiratory 16 Rate Blood Pressure 134/84 O2 Sat by Pulse 97 Oximetry Medical Decision Making - Medical Decision Making 37-year-old male notes emergency department today requesting work note to his chronic back pain. He spells with Dr. Ybarra. He has a few more physical therapy treatments until he can receive injections to resolve his back pain. He has had MRIs and imaging in the past. Patient at this time. Has no red flag symptoms. He reports that his pain is chronic. I did discuss with Patient that we can provide a work note again today. Discussed that he should be following up with his work, [facility], and back specialist in regards to for further workup and treatment plan. Patient agrees to treatment plan will comply. Disposition Clinical Impression: Chronic lumbar pain Disposition: HOME SELF-CARE Condition: Good Instructions: Chronic Back Pain (ED) Additional Instructions: Patient advised to rest, alternate heat and ice to the lower back and spine. Patient should take the meds as prescribed by her back specialist. Patient should return to the emergency department if any alarming signs or symptoms occur including loss of bowel or bladder control. Is patient prescribed a controlled substance at d/c from ED?: No Referrals: Brad Rowland MD [Primary Care Provider] - 1-2 days Time of Disposition: 08:27
== END 2018-03-11 08:34 | disposition home or self-care (01) ==
LOC: EC 08:06
DX: G89.29 Other chronic pain (principal); M54.5 Low back pain; F17.200 Nicotine dependence, unspecified, uncomplicated
CPT/HCPCS: 99283

== ENCOUNTER 2018-05-14 10:57 | Emergency (ER) | payer OTHER ==
[2018-05-14 11:07] VITALS: RESP 18
[2018-05-14] MEDS ORDERED: SODIUM CHLORIDE 0.9% 1,000 ML IV STA (11:19)
[2018-05-14] MEDS ORDERED: DICYCLOMINE 20 MG TAB PO STA (11:54)
--- NOTE | 2018-05-14 12:03 | ED ---
Abdominal Pain HPI - General Chief Complaint: Abdominal Pain Stated Complaint: Abd.pain Time Seen by Provider: 05/14/18 11:19 Source: patient, RN notes reviewed Mode of arrival: ambulatory Limitations: no limitations - History of Present Illness Initial Comments: 37-year-old male presents emergency Department chief complaint of diarrhea. Patient states she's had intermittent episodes of diarrhea with abdominal pain. Patient states he gets a large amount cramping but states it does resolve. He has no current pain. Patient states nothing in go to work at this time. Denies any nausea vomiting, fever, chills, melena or hematochezia. He's had no dysuria. No prior abdominal surgeries. He does have a history of IBS. - Related Data Home Medications Medication Instructions Recorded Confirmed Ibuprofen [Motrin] 800 mg PO TID PRN 01/10/18 05/14/18 Previous Rx's Medication Instructions Recorded Dicyclomine [Bentyl] 20 mg PO TID #30 tablet 05/14/18 Allergies Allergy/AdvReac Type Severity Reaction Status Date / Time No Known Allergies Allergy Verified 05/14/18 11:24 Review of Systems ROS Statement: Those systems with pertinent positive or pertinent negative responses have been documented in the HPI. ROS Other: All systems not noted in ROS Statement are negative. Past Medical History Past Medical History: No Reported History Additional Past Medical History / Comment(s): chronic back pain, IBS History of Any Multi-Drug Resistant Organisms: None Reported Past Surgical History: Orthopedic Surgery Additional Past Surgical History / Comment(s): rt hand, vasectomy Past Psychological History: No Psychological Hx Reported Smoking Status: Current every day smoker Past Alcohol Use History: Rare Past Drug Use History: None Reported General Exam Limitations: no limitations General appearance: alert, in no apparent distress Head exam: Present: atraumatic, normocephalic, normal inspection Eye exam: Present: normal appearance, PERRL, EOMI. Absent: scleral icterus, conjunctival injection, periorbital swelling ENT exam: Present: normal exam, normal oropharynx, mucous membranes moist Neck exam: Present: normal inspection. Absent: tenderness, meningismus, ly mphadenopathy Respiratory exam: Present: normal lung sounds bilaterally. Absent: respiratory distress, wheezes, rales, rhonchi, stridor Cardiovascular Exam: Present: regular rate, normal rhythm, normal heart sounds. Absent: systolic murmur, diastolic murmur, rubs, gallop, clicks GI/Abdominal exam: Present: soft, normal bowel sounds. Absent: distended, tenderness, guarding, rebound, rigid Skin exam: Present: warm, dry, intact, normal color. Absent: rash Course Vital Signs 05/14/18 11:05 Temperature 98.3 F Pulse Rate 94 Respiratory 18 Rate Blood Pressure 136/78 O2 Sat by Pulse 99 Oximetry Medical Decision Making - Medical Decision Making 37-year-old male presented from for abdominal pain, diarrhea. Patient is asymptomatic at this time. He does have a history of IBS. Symptoms are consistent with abdominal cramping related to IBS, diarrhea. Patient be discharged with Bentyl. Return parameters discussed. - Lab Data Result diagrams: 05/14/18 12:22 05/14/18 12:22 Lab Results 05/14/18 05/14/18 05/14/18 Range/Units 12:22 12:22 12:22 WBC 11.3 H (3.8-10.6) k/uL RBC 4.85 (4.30-5.90) m/uL Hgb 15.6 (13.0-17.5) gm/dL Hct 47.1 (39.0-53.0) % MCV 97.3 (80.0-100.0) fL MCH 32.2 (25.0-35.0) pg MCHC 33.1 (31.0-37.0) g/dL RDW 13.1 (11.5-15.5) % Plt Count 231 (150-450) k/uL Neutrophils % 75 % Lymphocytes % 18 % Monocytes % 4 % Eosinophils % 1 % Basophils % 0 % Neutrophils # 8.5 H (1.3-7.7) k/uL Lymphocytes # 2.0 (1.0-4.8) k/uL Monocytes # 0.5 (0-1.0) k/uL Eosinophils # 0.1 (0-0.7) k/uL Basophils # 0.0 (0-0.2) k/uL Sodium 140 (137-145) mmol/L Potassium 4.3 (3.5-5.1) mmol/L Chloride 107 (98-107) mmol/L Carbon Dioxide 27 (22-30) mmol/L Anion Gap 6 mmol/L BUN 10 (9-20) mg/dL Creatinine 0.68 (0.66-1.25) mg/dL Est GFR (CKD-EPI)AfAm >90 (>60 ml/min/1.73 sqM) Est GFR (CKD-EPI)NonAf >90 (>60 ml/min/1.73 sqM) Glucose 91 (74-99) mg/dL Calcium 9.6 (8.4-10.2) mg/dL Total Bilirubin 0.3 (0.2-1.3) mg/dL AST 31 (17-59) U/L ALT 42 (21-72) U/L Alkaline Phosphatase 72 (38-126) U/L Total Protein 7.1 (6.3-8.2) g/dL Albumin 4.2 (3.5-5.0) g/dL Amylase 56 (30-110) U/L Lipase 105 (23-300) U/L Urine Color Yellow Urine Appearance Clear (Clear) Urine pH 7.5 (5.0-8.0) Ur Specific [place] 1.010 (1.001-1.035) Urine Protein Negative (Negative) Urine Glucose (UA) Negative (Negative) Urine Ketones Negative (Negative) Urine Blood Negative (Negative) Urine Nitrite Negative (Negative) Urine Bilirubin Negative (Negative) Urine Urobilinogen <2.0 (<2.0) mg/dL Ur Leukocyte Esterase Negative (Negative) Disposition Clinical Impression: Abdominal pain, Diarrhea Disposition: HOME SELF-CARE Condition: Stable Instructions (If sedation given, give patient instructions): Abdominal Pain (ED) Additional Instructions: Please return to the Emergency Department if symptoms worsen or any other concerns. Prescriptions: Dicyclomine [Bentyl] 20 mg PO TID #30 tablet Is patient prescribed a controlled substance at d/c from ED?: No Referrals: Brad Rowland MD [Primary Care Provider] - 1-2 days Time of Disposition: 13:30
[2018-05-14 13:02] LABS: Basophils % (A) 0 %; Eosinophils # (A) 0.1 k/uL (0-0.7); Eosinophils % (A) 1 %; HCT 47.1 % (39.0-53.0); HGB 15.6 gm/dL (13.0-17.5); Lymphocytes % (A) 18 %; MCH 32.2 pg (25.0-35.0); MCHC 33.1 g/dL (31.0-37.0); MCV 97.3 fL (80.0-100.0); Mean Platelet Volume 7.6; Monocytes # (A) 0.5 k/uL (0-1.0); Monocytes % (A) 4 %; Neutrophils # (A) 8.5 k/uL (1.3-7.7); Neutrophils % (A) 75 %; Platelet Count 231 k/uL (150-450); RBC 4.85 m/uL (4.30-5.90); RDW 13.1 % (11.5-15.5); WBC 11.3 k/uL (3.8-10.6)
[2018-05-14 13:06] LABS: Appearance,Urine Clear (Clear); Bilirubin,Urine Negative (Negative); Blood,Urine Negative (Negative); Color,Urine Yellow; Glucose,Urine (UA) Negative (Negative); Ketones,Urine Negative (Negative); Leukocyte Esterase,Urine Negative (Negative); Nitrite,Urine Negative (Negative); PH, Urine 7.5 (5.0-8.0); Protein,Urine Negative (Negative); Urobilinogen,Urine <2.0 mg/dL (<2.0)
[2018-05-14 13:15] LABS: Sodium 140 mmol/L (137-145)
[2018-05-14 13:17] LABS: ALT 42 U/L (21-72); AST 31 U/L (17-59); Albumin 4.2 g/dL (3.5-5.0); Alkaline Phosphatase 72 U/L (38-126); Amylase 56 U/L (30-110); Anion Gap 6 mmol/L; Blood Urea Nitrogen 10 mg/dL (9-20); Calcium 9.6 mg/dL (8.4-10.2); Carbon Dioxide 27 mmol/L (22-30); Chloride 107 mmol/L (98-107); Glucose 91 mg/dL (74-99); Lipase 105 U/L (23-300); Potassium 4.3 mmol/L (3.5-5.1); Total Bilirubin 0.3 mg/dL (0.2-1.3); Total Protein 7.1 g/dL (6.3-8.2)
[2018-05-14 13:48] VITALS: BP 123/84; PULSE 70; TEMP 97.6
== END 2018-05-14 13:48 | disposition home or self-care (01) ==
LOC: EC 10:57
DX: R10.9 Unspecified abdominal pain (principal); R19.7 Diarrhea, unspecified; F17.200 Nicotine dependence, unspecified, uncomplicated
CPT/HCPCS: 36415; 80053; 81003; 82150; 83690; 85025; 96360; 99284

== ENCOUNTER 2018-05-20 15:03 | Emergency (ER) | payer OTHER ==
[2018-05-20 15:08] VITALS: BP 119/75; PULSE 84; RESP 18; TEMP 98.3
--- NOTE | 2018-05-20 15:35 | ED ---
General Adult HPI - General Chief complaint: Recheck/Abnormal Lab/Rx Stated complaint: IBS Time Seen by Provider: 05/20/18 15:09 Source: patient, RN notes reviewed Mode of arrival: ambulatory Limitations: no limitations - History of Present Illness Initial comments: 37-year-old male with a past medical history of back pain, IBS presents to the emergency department for medication refill. Patient states he was seen here about a week ago and had cramping and diarrhea. Patient states the symptoms are consistent with IBS. Patient states he has been seen by GI in [place] when he lived there and diagnosed with this. Patient states this has been ongoing for years. He states that he did not have symptoms for about 2 years so was not on any medications. However cramping and diarrhea recurred again about a week ago. Patient states he lost his prescription for Bentyl and needs a note for work. Patient states that he already had a thorough workup for abdominal pain and does not want any additional workup. He states the cramping is only when he is having a bowel movement. He is denying any abdominal pain or other symptoms at this time. Patient has no other complaints at this time including shortness of breath, chest pain, a nausea or vomiting, headache, or visual changes. - Related Data Home Medications Medication Instructions Recorded Confirmed Ibuprofen [Motrin] 800 mg PO TID PRN 01/10/18 05/14/18 Previous Rx's Medication Instructions Recorded Dicyclomine [Bentyl] 20 mg PO TID #30 tablet 05/14/18 Dicyclomine [Bentyl] 20 mg PO TID PRN #20 tablet 05/20/18 Allergies Allergy/AdvReac Type Severity Reaction Status Date / Time No Known Allergies Allergy Verified 05/20/18 15:08 Review of Systems ROS Statement: Those systems with pertinent positive or pertinent negative responses have been documented in the HPI. ROS Other: All systems not noted in ROS Statement are negative. Past Medical History Past Medical History: No Reported History Additional Past Medical History / Comment(s): chronic back pain, IBS History of Any Multi-Drug Resistant Organisms: None Reported Past Surgical History: Orthopedic Surgery Additional Past Surgical History / Comment(s): rt hand, vasectomy Past Psychological History: No Psychological Hx Reported Smoking Status: Current every day smoker Past Alcohol Use History: Rare Past Drug Use History: None Reported General Exam Limitations: no limitations General appearance: alert, in no apparent distress Head exam: Present: atraumatic, normocephalic, normal inspection Eye exam: Present: normal appearance, PERRL, EOMI. Absent: scleral icterus, conjunctival injection, periorbital swelling ENT exam: Present: normal exam, mucous membranes moist Neck exam: Present: normal inspection, full ROM. Absent: tenderness, me ningismus, lymphadenopathy Respiratory exam: Present: normal lung sounds bilaterally. Absent: respiratory distress, wheezes, rales, rhonchi, stridor Cardiovascular Exam: Present: regular rate, normal rhythm, normal heart sounds. Absent: systolic murmur, diastolic murmur, rubs, gallop, clicks GI/Abdominal exam: Present: soft, normal bowel sounds. Absent: distended, tenderness (no tenderness noted to the abdomen whatsoever), guarding, rebound, rigid Neurological exam: Present: alert, oriented X3, CN II-XII intact Psychiatric exam: Present: normal affect, normal mood Course Vital Signs 05/20/18 15:05 Temperature 98.3 F Pulse Rate 84 Respiratory 18 Rate Blood Pressure 119/75 O2 Sat by Pulse 97 Oximetry Medical Decision Making - Medical Decision Making 37-year-old male presents to the emergency department for chief of medication refill. Patient has a history of IBS and lost his Bentyl prescription. Patient would also like a note for work. Patient does not want any additional workup. Previous visit was reviewed by myself. Patient states he is following up with GI. Patient denies any symptoms at this time and states he just has cramping when he has bowel movements which is consistent with his previous diagnosis of IBS by a GI specialist. Patient was given prescription and no for work. However he was educated to return here if has worsening symptoms for additional workup but she agrees to do. He will follow up with primary care and GI in 1-2 days. Disposition Clinical Impression: Encounter for medication refill Disposition: HOME SELF-CARE Condition: Good Instructions (If sedation given, give patient instructions): Dicyclomine (By mouth), Irritable Bowel Syndrome (ED) Additional Instructions: Please take prescription as directed. Please follow-up with primary care and GI in 1-2 days. Return here for any worsening symptoms. Prescriptions: Dicyclomine [Bentyl] 20 mg PO TID PRN #20 tablet PRN Reason: Pain Is patient prescribed a controlled substance at d/c from ED?: No Referrals: Brad Rowland MD [Primary Care Provider] - 1-2 days Susan Fournier MD [STAFF PHYSICIAN] - 1-2 days Time of Disposition: 15:34
== END 2018-05-20 15:51 | disposition home or self-care (01) ==
LOC: EC 15:03
DX: Z76.0 Encounter for issue of repeat prescription (principal); K58.9 Irritable bowel syndrome, unspecified; F17.200 Nicotine dependence, unspecified, uncomplicated; Z98.52 Vasectomy status; Z98.890 Other specified postprocedural states
CPT/HCPCS: 99282

== ENCOUNTER 2018-05-21 15:43 | Emergency (ER) | payer OTHER ==
[2018-05-21 16:01] VITALS: BP 119/79; PULSE 87; RESP 16; TEMP 98.6
--- NOTE | 2018-05-21 17:21 | ED ---
General Adult HPI - General Chief complaint: Recheck/Abnormal Lab/Rx Stated complaint: Revist-IBS Time Seen by Provider: 05/21/18 16:07 Source: patient, RN notes reviewed, old records reviewed Mode of arrival: ambulatory Limitations: no limitations - History of Present Illness Initial comments: 37-year-old male patient past medical history of irritable bowel syndrome, chronic back pain presents to ED with request of working out for excuse from work. Patient reports that he was not bowel syndrome and while he was driving to work he had a bout of diarrhea and had to go defecate in the [place]. Patient reports that he called his boss and explain what happened, his boss told him to take today off work however to present to ER in order to receive work note. Patient was seen here yesterday for refill of medication Bentyl for irritable bowel syndrome. Patient this time is asymptomatic, patient has other complaints. Systemic: Pt denies fatigue, myalgia, fever/chills, rash. Pt denies weakness, night sweats, weight loss. Neuro: Pt denies headache, visual disturbances, syncope or pre-syncope. HEENT: Pt denies ocular discharge or irritation, otalgia, rhinorrhea, pharyngitis or notable lymphadenopathy. Cardiopulmonary: Pt denies chest pain, SOB, heart palpitations, dyspnea on exertion. Abdominal/GI: Pt denies abdominal pain, n/v. : Pt denies dysuria, burning w/ urination, frequency/urgency. Denies new onset urinary or bowel incontinence. MSK: Pt denies myalgia, loss of strength or function in extremities. Neuro: Pt denies new onset weakness, paresthesias. - Related Data Home Medications Medication Instructions Recorded Confirmed Ibuprofen [Motrin] 800 mg PO TID PRN 01/10/18 05/14/18 Previous Rx's Medication Instructions Recorded Dicyclomine [Bentyl] 20 mg PO TID #30 tablet 05/14/18 Dicyclomine [Bentyl] 20 mg PO TID PRN #20 tablet 05/20/18 Allergies Allergy/AdvReac Type Severity Reaction Status Date / Time No Known Allergies Allergy Verified 05/21/18 16:01 Review of Systems ROS Statement: Those systems with pertinent positive or pertinent negative responses have been documented in the HPI. ROS Other: All systems not noted in ROS Statement are negative. Past Medical History Past Medical History: No Reported History Additional Past Medical History / Comment(s): chronic back pain, IBS History of Any Multi-Drug Resistant Organisms: None Reported Past Surgical History: Orthopedic Surgery Additional Past Surgical History / Comment(s): rt hand, vasectomy Past Psychological History: No Psychological Hx Reported Smoking Status: Current every day smoker Past Alcohol Use History: Rare Past Drug Use History: Marijuana General Exam - General Exam Comments Initial Comments: Constitutional: NAD, AOX3, Pt has pleasant affect. HEENT: NC/AT, trachea midline, neck supple, no lymphadenopathy. Posterior pharynx non erythematous, without exudates. External ears appear normal, without discharge. Mucous membranes moist. Eyes PERRLA, EOM intact. There is no scleral icterus. No pallor noted. Cardiopulmonary: RRR, no murmurs, rubs or gallops, no JVD noted. Lungs CTAB in anterior and posterior gratn. No peripheral edema. Abdominal exam: Abdomen soft and non-distended. Abdomen non-tender to palpation in all 4 quadrants. Bowel sounds active in LLQ. No hepatosplenomegaly. No ecchymosis Neuro: CN II-XII grossly intact. No nuchal rigidity. MSK: No posterior calf tenderness bilaterally, homans sign negative bilaterally. Posterior tibialis and radial pulse +2 bilaterally. Sensation intact in upper and lower extremities. Full active ROM in upper and lower extremities, 5/5 stregnth. Limitations: no limitations Course Vital Signs 05/21/18 15:58 Temperature 98.6 F Pulse Rate 87 Respiratory 16 Rate Blood Pressure 119/79 O2 Sat by Pulse 97 Oximetry Medical Decision Making - Medical Decision Making 37-year-old male patient past medical history of irritable bowel syndrome, chronic back pain presents to ED with request of working out for excuse from work. Patient reports that he was not bowel syndrome and while he was driving to work he had a bout of diarrhea and had to go defecate in the [place]. Patient reports that he called his boss and explain what happened, his boss told him to take today off work however to present to ER in order to receive work note. Patient was seen here yesterday for refill of medication Bentyl for irritable bowel syndrome. Patient this time is asymptomatic, patient has other complaints. Patient will signs stable, afebrile. Physical exam didn't display acute pathology. Patient provided a work note which explained that he was cleared to return to work tomorrow. Patient to f/u with PCP in 1-2 days. Case discussed with Dr. Horton. Disposition Clinical Impression: Diarrhea Disposition: HOME SELF-CARE Condition: Stable Instructions (If sedation given, give patient instructions): Nutrition Tips for Relief of Diarrhea (ED) Additional Instructions: Patient to adhere to previously discussed treatment plan and will take medication(s) as directed. Patient to follow up with PCP in 1-2 days. Patient to return to ED if symptoms do not improve. Is patient prescribed a controlled substance at d/c from ED?: No Referrals: Brad Rowland MD [Primary Care Provider] - 1-2 days
== END 2018-05-21 17:51 | disposition home or self-care (01) ==
LOC: EC 15:43
DX: R19.7 Diarrhea, unspecified (principal); F17.200 Nicotine dependence, unspecified, uncomplicated
CPT/HCPCS: 99283

== ENCOUNTER 2018-10-23 13:48 | Emergency (ER) | payer OTHER ==
[2018-10-23 13:58] VITALS: RESP 18
--- NOTE | 2018-10-23 14:40 | ED ---
Fall HPI - General Chief Complaint: Fall Stated Complaint: Fall Time Seen by Provider: 10/23/18 14:13 Source: patient, RN notes reviewed Mode of arrival: ambulatory Limitations: no limitations - History of Present Illness Initial Comments: 38-year-old male presents emergency Department with chief complaint low back pain. Patient's had chronic issues with his back but states that he is moving a mattress and his daughter slipped causing him to fall into a pillar. Patient denies any head injury no loss conscious complains that he has some low back pa in is concern that he's had injections and other procedures on his back. Patient denies any abdominal pain denies any bowel bladder incontinence or retention. Patient denies any lower shunted paresthesias, saddle anesthesias or lower extremity weakness. Patient states it is a sore back in which he took Motrin for. Patient offers no other complaints. - Related Data Home Medications Medication Instructions Recorded Confirmed No Known Home Medications 10/23/18 10/23/18 Allergies Allergy/AdvReac Type Severity Reaction Status Date / Time No Known Allergies Allergy Verified 10/23/18 14:21 Review of Systems ROS Statement: Those systems with pertinent positive or pertinent negative responses have been documented in the HPI. ROS Other: All systems not noted in ROS Statement are negative. Past Medical History Past Medical History: No Reported History Additional Past Medical History / Comment(s): chronic back pain, IBS History of Any Multi-Drug Resistant Organisms: None Reported Past Surgical History: Orthopedic Surgery Additional Past Surgical History / Comment(s): rt hand, vasectomy Past Psychological History: No Psychological Hx Reported Smoking Status: Current every day smoker Past Alcohol Use History: Rare Past Drug Use History: Marijuana General Exam Limitations: no limitations General appearance: alert, in no apparent distress Head exam: Present: atraumatic, normocephalic, normal inspection Neck exam: Present: normal inspection, full ROM. Absent: tenderness, meningismus, lymphadenopathy Respiratory exam: Present: normal lung sounds bilaterally. Absent: respiratory distress, wheezes, rales, rhonchi, stridor Cardiovascular Exam: Present: regular rate, normal rhythm, normal heart sounds. Absent: systolic murmur, diastolic murmur, rubs, gallop, clicks Extremities exam: Present: full ROM. Absent: tenderness, pedal edema, joint swelling Back exam: Present: normal inspection, full ROM, tenderness, paraspinal tenderness. Absent: CVA tenderness (R), CVA tenderness (L), vertebral tenderness Neurological exam: Present: alert, oriented X3, CN II-XII intact, reflexes normal. Absent: motor sensory deficit Skin exam: Present: warm, dry, intact, normal color. Absent: rash Course Vital Signs 10/23/18 13:53 Temperature 97.9 F Pulse Rate 90 Respiratory 18 Rate Blood Pressure 127/78 O2 Sat by Pulse 98 Oximetry Medical Decision Making - Medical Decision Making 38 show male present emergency from for a fall back pain. X-rays were obtained there are no acute changes. He has no red flag symptoms he is neurovascular intact patient be discharged with follow-up. Disposition Clinical Impression: Fall, Lumbar back pain Disposition: HOME SELF-CARE Condition: Stable Instructions (If sedation given, give patient instructions): Back Pain (ED) Additional Instructions: Please return to the Emergency Department if symptoms worsen or any other concerns. Is patient prescribed a controlled substance at d/c from ED?: No Referrals: Brad Rowland MD [Primary Care Provider] - 1-2 days Time of Disposition: 15:23
--- NOTE | 2018-10-23 14:54 | XR ---
EXAMINATION TYPE: XR lumbar spine 2 or 3V DATE OF EXAM: 10/23/2018 COMPARISON: 09/09/2017 HISTORY: Fall, low back pain TECHNIQUE: Three-view lumbar spine FINDINGS: There 5 lumbar-type vertebral bodies. Pedicles are intact. Disc heights are preserved. Vert ebral body heights are preserved. Alignment is normal. Disc heights are preserved. Exam is stable fro 09/09/2017. IMPRESSION: 1. Normal three-view lumbar spine
[2018-10-23] MEDS ORDERED: ACET/COD 300 MG/30 MG STARTER PACK 6 TAB BTL PO STA (15:23)
[2018-10-23 15:48] VITALS: BP 122/70; PULSE 82; TEMP 97.4
== END 2018-10-23 15:47 | disposition home or self-care (01) ==
LOC: EC 13:48
DX: M54.5 Low back pain (principal); F17.200 Nicotine dependence, unspecified, uncomplicated; W10.9XXA Fall (on) (from) unspecified stairs and steps, initial encounter; Y93.89 Activity, other specified; Y92.009 Unspecified place in unspecified non-institutional (private) residence as the place of occurrence of the external cause
CPT/HCPCS: 72100; 99283

== ENCOUNTER 2018-10-29 12:25 | Emergency (ER) | payer SELFPAY ==
[2018-10-29 12:55] VITALS: RESP 16
[2018-10-29] MEDS ORDERED: ONDANSETRON 4 MG/2 ML VIAL IVP STA (13:05)
[2018-10-29] MEDS ORDERED: KETOROLAC 30 MG/ML 1 ML VIAL IVP STA (13:05)
[2018-10-29] MEDS ORDERED: SODIUM CHLORIDE 0.9% 1,000 ML IV STA ×2 (13:05)
[2018-10-29] MEDS ORDERED: PANTOPRAZOLE 40 MG/10 ML VIAL IVP STA (13:05)
--- NOTE | 2018-10-29 13:07 | ED ---
Abdominal Pain HPI - General Chief Complaint: Abdominal Pain Stated Complaint: stomach cramps Time Seen by Provider: 10/29/18 13:00 Source: patient, RN notes reviewed, old records reviewed Mode of arrival: ambulatory Limitations: no limitations - History of Present Illness Initial Comments: This is a 38-year-old male the ER for evaluation presents today for evaluation regards to abdominal pain and cramping. History of IBS. Patient does admit to going to bradycardia as of recent at the birthday constitution party did have some drinks nothing excessive per patient. Mild nausea no vomiting. Patient has history gout of IBS with a few ER visits for same. No current significant pain. No fevers. He is main complaint is diarrhea. He states he has diarrhea or bowel movement about every 20 minutes. At this point watery and painful. No travel history no sick contacts or recent antibiotics MD Complaint: abdominal pain -: days(s) (3) Location: diffuse, suprapubic Radiation: epigastric, suprapubic Migration to: suprapubic Severity: moderate Severity scale (1-10): 5 Quality: cramping Consistency: intermittent Improves With: nothing Worsens With: nothing Associated Symptoms: denies other symptoms, nausea, diarrhea - Related Data Home Medications Medication Instructions Recorded Confirmed No Known Home Medications 10/23/18 10/29/18 Allergies Allergy/AdvReac Type Severity Reaction Status Date / Time No Known Allergies Allergy Verified 10/29/18 13:14 Review of Systems ROS Statement: Those systems with pertinent positive or pertinent negative responses have been documented in the HPI. ROS Other: All systems not noted in ROS Statement are negative. Past Medical History Past Medical History: No Reported History Additional Past Medical History / Comment(s): chronic back pain, IBS History of Any Multi-Drug Resistant Organisms: None Reported Past Surgical History: Orthopedic Surgery Additional Past Surgical History / Comment(s): rt hand, vasectomy Past Psychological History: No Psychological Hx Reported Smoking Status: Current every day smoker Past Alcohol Use History: Rare Past Drug Use History: Marijuana General Exam Limitations: no limitations General appearance: alert, in no apparent distress Head exam: Present: atraumatic, normocephalic, normal inspection Eye exam: Present: normal appearance, PERRL, EOMI. Absent: scleral icterus, conjunctival injection, periorbital swelling ENT exam: Present: normal exam, mucous membranes moist Neck exam: Present: normal inspection. Absent: tenderness, meningismus, lymphadenopathy Respiratory exam: Present: normal lung sounds bilaterally. Absent: respiratory distress, wheezes, rales, rhonchi, stridor Cardiovascular Exam: Present: regular rate, normal rhythm, normal heart sounds. Absent: systolic murmur, diastolic murmur, rubs, gallop, clicks GI/Abdominal exam: Present: soft, normal bowel sounds. Absent: distended, tenderness, guarding, rebound, rigid Extremities exam: Present: normal inspection, full ROM, normal capillary refill. Absent: tenderness, pedal edema, joint swelling, calf tenderness Back exam: Present: normal inspection Neurological exam: Present: alert, oriented X3, CN II-XII intact Psychiatric exam: Present: normal affect, normal mood Skin exam: Present: warm, dry, intact, normal color. Absent: rash Course Vital Signs 10/29/18 12:50 Temperature 98.2 F Pulse Rate 86 Respiratory 16 Rate Blood Pressure 118/77 O2 Sat by Pulse 98 Oximetry - Reevaluation(s) Reevaluation #1: 10/29/18 13:51 Medical records reviewed Reevaluation #2: 10/29/18 13:51 Symptoms are improved Medical Decision Making - Medical Decision Making 38 male the ER with Abdominal pain diarrhea, no significant diarrhea here in the ER. Patient's labwork is normal and can be discharged home - Lab Data Result diagrams: 10/29/18 13:45 10/29/18 13:45 Lab Results 10/29/18 10/29/18 10/29/18 Range/Units 13:45 13:45 13:45 WBC 14.1 H (3.8-10.6) k/uL RBC 5.18 (4.30-5.90) m/uL Hgb 16.4 (13.0-17.5) gm/dL Hct 49.1 (39.0-53.0) % MCV 94.9 (80.0-100.0) fL MCH 31.6 (25.0-35.0) pg MCHC 33.3 (31.0-37.0) g/dL RDW 14.7 (11.5-15.5) % Plt Count 225 (150-450) k/uL Neutrophils % 78 % Lymphocytes % 14 % Monocytes % 5 % Eosinophils % 1 % Basophils % 0 % Neutrophils # 11.1 H (1.3-7.7) k/uL Lymphocytes # 1.9 (1.0-4.8) k/uL Monocytes # 0.7 (0-1.0) k/uL Eosinophils # 0.2 (0-0.7) k/uL Basophils # 0.0 (0-0.2) k/uL Sodium 140 (137-145) mmol/L Potassium 4.0 (3.5-5.1) mmol/L Chloride 105 (98-107) mmol/L Carbon Dioxide 24 (22-30) mmol/L Anion Gap 11 mmol/L BUN 11 (9-20) mg/dL Creatinine 0.69 (0.66-1.25) mg/dL Est GFR (CKD-EPI)AfAm >90 (>60 ml/min/1.73 sqM) Est GFR (CKD-EPI)NonAf >90 (>60 ml/min/1.73 sqM) Glucose 96 (74-99) mg/dL Plasma Lactic Acid Aayush 1.1 (0.7-2.0) mmol/L Calcium 9.5 (8.4-10.2) mg/dL Phosphorus 2.9 (2.5-4.5) mg/dL Magnesium 2.1 (1.6-2.3) mg/dL Total Bilirubin 0.5 (0.2-1.3) mg/dL AST 34 (17-59) U/L ALT 33 (21-72) U/L Alkaline Phosphatase 74 (38-126) U/L Creatine Kinase 71 (55-170) U/L Total Protein 7.8 (6.3-8.2) g/dL Albumin 4.5 (3.5-5.0) g/dL Amylase 53 (30-110) U/L Lipase 67 (23-300) U/L Disposition Clinical Impression: Abdominal pain, Gastroenteritis Disposition: HOME SELF-CARE Condition: Good Instructions (If sedation given, give patient instructions): Gastroenteritis (ED) Is patient prescribed a controlled substance at d/c from ED?: No Referrals: Brad Rowland MD [Primary Care Provider] - 1-2 days
[2018-10-29 14:01] LABS: Basophils % (A) 0 %; Eosinophils # (A) 0.2 k/uL (0-0.7); Eosinophils % (A) 1 %; HCT 49.1 % (39.0-53.0); HGB 16.4 gm/dL (13.0-17.5); Lymphocytes # (A) 1.9 k/uL (1.0-4.8); Lymphocytes % (A) 14 %; MCH 31.6 pg (25.0-35.0); MCHC 33.3 g/dL (31.0-37.0); MCV 94.9 fL (80.0-100.0); Mean Platelet Volume 7.7; Monocytes # (A) 0.7 k/uL (0-1.0); Monocytes % (A) 5 %; Neutrophils # (A) 11.1 k/uL (1.3-7.7); Neutrophils % (A) 78 %; Platelet Count 225 k/uL (150-450); RBC 5.18 m/uL (4.30-5.90); RDW 14.7 % (11.5-15.5); WBC 14.1 k/uL (3.8-10.6)
[2018-10-29 14:10] LABS: ALT 33 U/L (21-72); AST 34 U/L (17-59); African American GFR (CKD) >90 (>60 ml/min/1.73 sqM); Albumin 4.5 g/dL (3.5-5.0); Alkaline Phosphatase 74 U/L (38-126); Amylase 53 U/L (30-110); Anion Gap 11 mmol/L; Blood Urea Nitrogen 11 mg/dL (9-20); Calcium 9.5 mg/dL (8.4-10.2); Carbon Dioxide 24 mmol/L (22-30); Chloride 105 mmol/L (98-107); Creatine Kinase 71 U/L (55-170); Glucose 96 mg/dL (74-99); Magnesium 2.1 mg/dL (1.6-2.3); Phosphorus 2.9 mg/dL (2.5-4.5); Sodium 140 mmol/L (137-145); Total Bilirubin 0.5 mg/dL (0.2-1.3); Total Protein 7.8 g/dL (6.3-8.2)
[2018-10-29 15:26] VITALS: BP 141/78; PULSE 60; TEMP 98
== END 2018-10-29 15:22 | disposition home or self-care (01) ==
LOC: EC 12:25
DX: K52.9 Noninfective gastroenteritis and colitis, unspecified (principal); F17.200 Nicotine dependence, unspecified, uncomplicated; Z87.19 Personal history of other diseases of the digestive system; Z53.8 Procedure and treatment not carried out for other reasons
CPT/HCPCS: 36415; 80053; 82150; 82550; 83605; 83690; 83735; 84100; 85025; 99284; 96374; 96375; 96361 ×2; J2405; C9113

== ENCOUNTER 2018-12-06 11:50 | Emergency (ER) | payer OTHER ==
[2018-12-06 12:21] VITALS: BP 114/72; PULSE 79; RESP 16; TEMP 98.2
[2018-12-06] MEDS ORDERED: IBUPROFEN 600 MG STARTER PACK 4 TAB BTL PO STA (12:44)
--- NOTE | 2018-12-06 12:44 | ED ---
Back Pain HPI - General Chief Complaint: Back Pain/Injury Stated Complaint: back pain Time Seen by Provider: 12/06/18 12:27 Source: patient, RN notes reviewed Mode of arrival: ambulatory Limitations: no limitations - History of Present Illness Initial Comments: 38-year-old male presents emergency Department chief complaint low back pain. Patient states that he's had chronic issues. Patient takes ibuprofen but states it comes out. Patient denies any bowel bladder incontinence or retention. Patient currently is a service tech/welder. He denies any trauma denies doing anything that he knows he injured his back. He states he just feels very stiff and cannot go to work. He is requesting a work no. He has no abdominal complaints. Patient offers no fevers or chills no other issues. - Related Data Previous Rx's Medication Instructions Recorded Ondansetron Odt [Zofran ODT] 4 mg PO Q8HR PRN #10 tab 10/29/18 Allergies Allergy/AdvReac Type Severity Reaction Status Date / Time No Known Allergies Allergy Verified 12/06/18 12:16 Review of Systems ROS Statement: Those systems with pertinent positive or pertinent negative responses have been documented in the HPI. ROS Other: All systems not noted in ROS Statement are negative. Past Medical History Past Medical History: No Reported History Additional Past Medical History / Comment(s): chronic back pain, IBS History of Any Multi-Drug Resistant Organisms: None Reported Past Surgical History: Orthopedic Surgery Additional Past Surgical History / Comment(s): rt hand, vasectomy Past Psychological History: No Psychological Hx Reported Smoking Status: Current every day smoker Past Alcohol Use History: Rare Past Drug Use History: Marijuana General Exam Limitations: no limitations General appearance: alert, in no apparent distress Head exam: Present: atraumatic, normocephalic, normal inspection Neck exam: Present: normal inspection, full ROM. Absent: tenderness, meningismus, lymphadenopathy Respiratory exam: Present: normal lung sounds bilaterally. Absent: respiratory distress, wheezes, rales, rhonchi, stridor Cardiovascular Exam: Present: regular rate, normal rhythm, normal heart sounds. Absent: systolic murmur, diastolic murmur, rubs, gallop, clicks GI/Abdominal exam: Present: soft, normal bowel sounds. Absent: distended, tenderness, guarding, rebound, rigid Extremities exam: Present: normal inspection, full ROM, normal capillary refill. Absent: tenderness, pedal edema, joint swelling, calf tenderness Back exam: Present: full ROM, paraspinal tenderness. Absent: tenderness, vertebral tenderness Neurological exam: Present: alert, oriented X3, CN II-XII intact, reflexes normal. Absent: motor sensory deficit Skin exam: Present: warm, dry, intact, normal color. Absent: rash Course Vital Signs 12/06/18 12:16 Temperature 98.2 F Pulse Rate 79 Respiratory 16 Rate Blood Pressure 114/72 O2 Sat by Pulse 99 Oximetry Medical Decision Making - Medical Decision Making 38-year-old male presented for exacerbation of his chronic back pain. Patient will be provided a work no. He has no red flag symptoms. Patient be discharged return parameters were discussed. Disposition Clinical Impression: Acute exacerbation of chronic low back pain Disposition: HOME SELF-CARE Instructions (If sedation given, give patient instructions): Acute Low Back Pain (ED) Additional Instructions: Please return to the Emergency Department if symptoms worsen or any other concerns. Is patient prescribed a controlled substance at d/c from ED?: No Referrals: Brad Rowland MD [Primary Care Provider] - 1-2 days Time of Disposition: 12:44
== END 2018-12-06 13:15 | disposition home or self-care (01) ==
LOC: EC 11:50
DX: G89.29 Other chronic pain (principal); M54.5 Low back pain; F17.200 Nicotine dependence, unspecified, uncomplicated
CPT/HCPCS: 99283

== ENCOUNTER 2018-12-09 09:22 | Emergency (ER) | payer OTHER ==
[2018-12-09 09:29] VITALS: BP 124/81; PULSE 84; RESP 17; TEMP 97.9
--- NOTE | 2018-12-09 10:38 | ED ---
General Adult HPI - General Chief complaint: Back Pain/Injury Stated complaint: Back pain Time Seen by Provider: 12/09/18 09:47 Source: patient, RN notes reviewed Mode of arrival: ambulatory Limitations: no limitations - History of Present Illness Initial comments: 38-year-old male presents to the emergency department for a chief complaint of lower back pain. Patient states pain is chronic. States it has been like this for years. States that he is starting to feel better after being seen in the ER a few days ago. Denies saddle anesthesia, bladder or bowel changes, numbness or weakness of the lower extremity. Denies any fevers or chills. Patient states he is only here because he needs a one-day extension of his work note from the ER the other day. States he is planning on returning to work for his midnight shift tonight but did not go yesterday so needs another work note. Patient has no other complaints at this time including shortness of breath, chest pain, abdominal pain, nausea or vomiting, headache, or visual changes. - Related Data Home Medications Medication Instructions Recorded Confirmed Ibuprofen [Motrin Ib] 400 mg PO Q6H PRN 12/09/18 12/09/18 Allergies Allergy/AdvReac Type Severity Reaction Status Date / Time No Known Allergies Allergy Verified 12/09/18 10:00 Review of Systems ROS Statement: Those systems with pertinent positive or pertinent negative responses have been documented in the HPI. ROS Other: All systems not noted in ROS Statement are negative. Past Medical History Past Medical History: No Reported History Additional Past Medical History / Comment(s): chronic back pain, IBS History of Any Multi-Drug Resistant Organisms: None Reported Past Surgical History: Orthopedic Surgery Additional Past Surgical History / Comment(s): rt hand, vasectomy Past Psychological History: No Psychological Hx Reported Smoking Status: Current every day smoker Past Alcohol Use History: Rare Past Drug Use History: Marijuana General Exam Limitations: no limitations General appearance: alert, in no apparent distress Head exam: Present: atraumatic, normocephalic, normal inspection Eye exam: Present: normal appearance, PERRL, EOMI. Absent: scleral icterus, conjunctival injection, periorbital swelling ENT exam: Present: normal exam, mucous membranes moist Neck exam: Present: normal inspection, full ROM. Absent: tenderness, meningismus, lymphadenopathy Respiratory exam: Present: normal lung sounds bilaterally. Absent: respiratory distress, wheezes, rales, rhonchi, stridor Cardiovascular Exam: Present: regular rate, normal rhythm, normal heart sounds. Absent: systolic murmur, diastolic murmur, rubs, gallop, clicks GI/Abdominal exam: Present: soft, normal bowel sounds. Absent: distended, tenderness, guarding, rebound, rigid Extremities exam: Present: normal inspection (Normal appearance in lower extremities bilaterally), normal capillary refill (Refill less than 2 seconds, DP pulse 2+ and lower extremities bilaterally) Back exam: Present: vertebral tenderness (Minimal lumbar vertebral tenderness.) Course Vital Signs 12/09/18 09:26 Temperature 97.9 F Pulse Rate 84 Respiratory 17 Rate Blood Pressure 124/81 O2 Sat by Pulse 100 Oximetry Medical Decision Making - Medical Decision Making Patient slowly presents for work no. Patient's back pain is chronic and he denies any red flag symptoms as documented. Patient is ambulatory. Patient wishes to return to work tonight and just needs a work note for last night. Work note will be written to return tomorrow as he has a midnight shift tonight. He is following with Dr. Ybarra and will continue to do so for pain management. He will return here if he has any worsening symptoms. Disposition Clinical Impression: Chronic back pain Disposition: HOME SELF-CARE Condition: Good Instructions (If sedation given, give patient instructions): Acute Low Back Pain (ED) Additional Instructions: Please continue to take your Motrin and Tylenol for pain. Follow up with doctor in one to 2 days. Return to the emergency department if you have any worsening symptoms. Is patient prescribed a controlled substance at d/c from ED?: No Referrals: Brad Rowland MD [Primary Care Provider] - 1-2 days Time of Disposition: 10:37
== END 2018-12-09 11:03 | disposition home or self-care (01) ==
LOC: EC 09:22
DX: M54.5 Low back pain (principal); G89.29 Other chronic pain; F17.200 Nicotine dependence, unspecified, uncomplicated
CPT/HCPCS: 99283

== ENCOUNTER 2019-01-20 15:13 | Emergency (ER) | payer OTHER ==
[2019-01-20 15:16] VITALS: BP 128/70; PULSE 82; RESP 18; TEMP 98.3
--- NOTE | 2019-01-20 15:36 | ED ---
General Adult HPI - General Chief complaint: Back Pain/Injury Stated complaint: Back Pain Time Seen by Provider: 01/20/19 15:25 Source: patient, RN notes reviewed, old records reviewed Mode of arrival: ambulatory Limitations: no limitations - History of Present Illness Initial comments: 38 old male patient presents ED chief complaint of chronic lumbar back pain. Patient reports that is a chronic back pain for years. Patient reports that periodically his back flares up on him and he is not able to work so he comes to the emergency department to get a work note. Patient reports that this happened last night. Patient reports that the pain is in his right paralumbar region. Denies any radiculopathy paresthesias. Denies any red flag symptoms. Denies any recent falls or trauma. Denies any new or concerning symptoms. Denies any other complaints. Systemic: Pt denies fatigue, fever/chills, rash. Pt denies weakness, night sweats, weight loss. Neuro: Pt denies headache, visual disturbances, syncope or pre-syncope. HEENT: Pt denies ocular discharge or irritation, otalgia, rhinorrhea, pharyngitis or notable lymphadenopathy. Cardiopulmonary: Pt denies chest pain, SOB, heart palpitations, dyspnea on exertion. Abdominal/GI: Pt denies abdominal pain, n/v/d. : Pt denies dysuria, burning w/ urination, frequency/urgency. Denies new onset urinary or bowel incontinence. MSK: Pt denies loss of strength or function in extremities. Neuro: Pt denies new onset weakness, paresthesias. - Related Data Home Medications Medication Instructions Recorded Confirmed Ibuprofen [Motrin Ib] 400 mg PO Q6H PRN 12/09/18 12/09/18 Allergies Allergy/AdvReac Type Severity Reaction Status Date / Time No Known Allergies Allergy Verified 01/20/19 15:14 Review of Systems ROS Statement: Those systems with pertinent positive or pertinent negative responses have been documented in the HPI. ROS Other: All systems not noted in ROS Statement are negative. Past Medical History Past Medical History: No Reported History Additional Past Medical History / Comment(s): chronic back pain, IBS History of Any Multi-Drug Resistant Organisms: None Reported Past Surgical History: Orthopedic Surgery Additional Past Surgical History / Comment(s): rt hand, vasectomy Past Psychological History: No Psychological Hx Reported Smoking Status: Current every day smoker Past Alcohol Use History: Rare Past Drug Use History: Marijuana General Exam - General Exam Comments Initial Comments: Constitutional: NAD, AOX3, Pt has pleasant affect. HEENT: NC/AT, trachea midline, neck supple, no lymphadenopathy. Posterior pharynx non erythematous, without exudates. External ears appear normal, without discharge. Mucous membranes moist. Eyes PERRLA, EOM intact. There is no scleral icterus. No pallor noted. Cardiopulmonary: RRR, no murmurs, rubs or gallops, no JVD noted. Lungs CTAB in anterior and posterior grant. No peripheral edema. Abdominal exam: Abdomen soft and non-distended. Abdomen non-tender to palpation in all 4 quadrants. Bowel sounds active in LLQ. No hepatosplenomegaly. No ecchymosis Neuro: CN II-XII grossly intact. No nuchal rigidity. No raccon eyes, no whitehead sign, no hemotympanum. No cervical spinal tenderness. MSK: Ambulatory without difficulty, 5 out of 5 strength psoas quadriceps muscles. Heel to toe walking intact. Right paralumbar region mildly tender to palpation. Straight leg raise is negative. No posterior calf tenderness bilaterally, homans sign negative bilaterally. Posterior tibialis and radial pulse +2 bilaterally. Sensation intact in upper and lower extremities. Full active ROM in upper and lower extremities, 5/5 stregnth. Limitations: no limitations Course Vital Signs 01/20/19 15:14 Temperature 98.3 F Pulse Rate 82 Respiratory 18 Rate Blood Pressure 128/70 O2 Sat by Pulse 97 Oximetry Medical Decision Making - Medical Decision Making 38-year-old male patient presents to the chief complaint of chronic back pain, patient reports that the pain caused him not feel to present to work today. 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 Patient vi rosmery signs are stable, afebrile. Patient reports that this pain is identical to symptoms he has been expressing the past. Declines any analgesia. Patient does follow up with orthopedic spine surgeon. Patient reports that the reason he is printing to the ER today is receive a work note. Declines any further imaging or investigations. Case discussed with Dr. Horton. Disposition Clinical Impression: Chronic back pain Disposition: HOME SELF-CARE Condition: Stable Instructions (If sedation given, give patient instructions): Acute Low Back Pain (ED) Additional Instructions: Follow-up with primary care provider and previously established orthopedic surgeon. Return to ER if condition worsens in any way. Is patient prescribed a controlled substance at d/c from ED?: No Referrals: Brad Rowland MD [Primary Care Provider] - 1-2 days
== END 2019-01-20 15:45 | disposition home or self-care (01) ==
LOC: EC 15:13
DX: G89.29 Other chronic pain (principal); M54.5 Low back pain; F17.200 Nicotine dependence, unspecified, uncomplicated; Z53.29 Procedure and treatment not carried out because of patient's decision for other reasons
CPT/HCPCS: 99283

== ENCOUNTER 2019-08-22 11:59 | Emergency (ER) | payer BC ==
[2019-08-22 12:05] VITALS: BP 112/81; PULSE 92; RESP 18; TEMP 98.4
--- NOTE | 2019-08-22 12:28 | ED ---
ENT HPI - General Chief complaint: Dental/Oral Stated complaint: dental pain Time Seen by Provider: 08/22/19 12:06 Source: patient Mode of arrival: ambulatory Limitations: no limitations - History of Present Illness Initial comments: 39-year-old male presenting today for chief complaint of left upper dental pain. Patient states that he has had left upper dental pain x year due to a cracked tooth, increasing for last month and was told by [facility] that needs to have tooth extracted and is scheduled for extraction on Sunday. Patient was givne antibiotics which he is currently taking. Denies facial swelling, changes in pain--states same pain for last week. Denies swelling below the tongue or of the face. Denies fevers. Karine denies additional complaints States he only came her for a work note. - Related Data Home Medications Medication Instructions Recorded Confirmed Ibuprofen [Motrin Ib] 400 mg PO Q6H PRN 12/09/18 12/09/18 Allergies Allergy/AdvReac Type Severity Reaction Status Date / Time No Known Allergies Allergy Verified 08/22/19 12:05 Review of Systems ROS Statement: Those systems with pertinent positive or pertinent negative responses have been documented in the HPI. ROS Other: All systems not noted in ROS Statement are negative. Past Medical History Past Medical History: No Reported History Additional Past Medical History / Comment(s): chronic back pain, IBS History of Any Multi-Drug Resistant Organisms: None Reported Past Surgical History: Orthopedic Surgery Additional Past Surgical History / Comment(s): rt hand, vasectomy Past Psychological History: No Psychological Hx Reported Smoking Status: Current every day smoker Past Alcohol Use History: Rare Past Drug Use History: Marijuana General Exam - General Exam Comments Initial Comments: General: The patient is awake and alert, in no distress, and does not appear acutely ill. Eye: Pupils are equal, round and reactive to light, extra-ocular movements are intact. No nystagmus. There is normal conjunctiva bilaterally. No signs of icterus. Ears, nose, mouth and throat: There are moist mucous membranes and no oral lesions. Tooth #14 has some exposed root, no adjacent swelling no pain or swelling below the tongue or under the angle of the mandible. Neck: The neck is supple, there is no tenderness or JVD. Musculoskeletal: Normal ROM, no tenderness. Strength 5/5. Sensation intact. Pulses equal bilaterally 2+. Neurological: A&O x 3. CN II-XII intact grossly, There are no obvious motor or sensory deficits. Coordination appears grossly intact. Speech is normal. Skin: Skin is warm and dry and no rashes or lesions are noted. Psychiatric: Cooperative, appropriate mood & affect, normal judgment. Limitations: no limitations Course Vital Signs 08/22/19 12:04 Temperature 98.4 F Pulse Rate 92 Respiratory 18 Rate Blood Pressure 112/81 O2 Sat by Pulse 96 Oximetry Medical Decision Making - Medical Decision Making Exam revealed some exposed root. No abscess or pain to percussion. Patient has no signs of ludqigs angina. Patient requesting work note. SCheduled for extraction on antibiotics. Patient discharged appearing well, return parameters discussed. Disposition Clinical Impression: Pain, dental Disposition: HOME SELF-CARE Instructions (If sedation given, give patient instructions): Toothache (ED) Additional Instructions: Please use medication as discussed. Please follow-up with [facility] sunday as scheduled. Please return to emergency room if the symptoms increase or worsen or for any other concerns. Is patient prescribed a controlled substance at d/c from ED?: No Referrals: Brad Rowland MD [Primary Care Provider] - 1-2 days Time of Disposition: 12:28
== END 2019-08-22 12:30 | disposition home or self-care (01) ==
LOC: EC 11:59
DX: K08.89 Other specified disorders of teeth and supporting structures (principal); K03.81 Cracked tooth; F17.200 Nicotine dependence, unspecified, uncomplicated
CPT/HCPCS: 99282

== ENCOUNTER 2019-09-02 16:57 | Emergency (ER) | payer BC ==
[2019-09-02 17:02] VITALS: BP 116/78; PULSE 94; RESP 18; TEMP 98.4
[2019-09-02] MEDS ORDERED: SODIUM CHLORIDE 0.9% 1,000 ML IV STA (17:17)
--- NOTE | 2019-09-02 17:41 | ED ---
Abdominal Pain HPI - General Chief Complaint: Abdominal Pain Stated Complaint: abd pain Time Seen by Provider: 09/02/19 17:00 Source: patient Mode of arrival: ambulatory Limitations: no limitations - History of Present Illness Initial Comments: Patient is a 39-year-old male presents emergency room with reported abdominal pain. Patient states that he's had diarrhea and some abdominal cramping for the past 2 days. 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 He is to be on Bentyl however does not have any of the medication left. Patient states that he had to miss work because of his diarrhea. His boss told him that he needed a note to be out of work. He reports that his symptoms have improved. He took some Pepto. He denies melenic stools or hematochezia. Patient is just requesting a work note at this time. Denies any nausea or vomiting. No fevers or chills. - Related Data Home Medications Medication Instructions Recorded Confirmed Ibuprofen [Motrin Ib] 400 mg PO Q6H PRN 12/09/18 12/09/18 Previous Rx's Medication Instructions Recorded Dicyclomine [Bentyl] 10 mg PO TID PRN #25 capsule 09/02/19 Allergies Allergy/AdvReac Type Severity Reaction Status Date / Time No Known Allergies Allergy Verified 09/02/19 17:02 Review of Systems ROS Statement: Those systems with pertinent positive or pertinent negative responses have been documented in the HPI. ROS Other: All systems not noted in ROS Statement are negative. Past Medical History Past Medical History: No Reported History Additional Past Medical History / Comment(s): chronic back pain, IBS History of Any Multi-Drug Resistant Organisms: None Reported Past Surgical History: Orthopedic Surgery Additional Past Surgical History / Comment(s): rt hand, vasectomy Past Psychological History: No Psychological Hx Reported Smoking Status: Current every day smoker Past Alcohol Use History: None Reported Past Drug Use History: Marijuana General Exam Limitations: no limitations Course Vital Signs 09/02/19 16:59 Temperature 98.4 F Pulse Rate 94 Respiratory 18 Rate Blood Pressure 116/78 O2 Sat by Pulse 98 Oximetry Medical Decision Making - Medical Decision Making Upon arrival the patient is placed into hallway 26. A thorough history and physical exam was performed. I did recommend laboratory studies however the patient refused. He states he only wants a work note. I did offer to refill his Bentyl. I recommend a follow-up with GI for his chronic abdominal issues. Turn to the emergency room for any new or worsening symptoms. Patient was discharged with stable condition Disposition Clinical Impression: Diarrhea Disposition: HOME SELF-CARE Condition: Stable Instructions (If sedation given, give patient instructions): Acute Diarrhea (ED) Additional Instructions: Please follow-up with your primary care doctor in regards to chronic diarrhea. Return to the emergency room for any new or worsening symptoms Prescriptions: Dicyclomine [Bentyl] 10 mg PO TID PRN #25 capsule PRN Reason: Diarrhea Is patient prescribed a controlled substance at d/c from ED?: No Referrals: Brad Rowland MD [Primary Care Provider] - 1-2 days Susan Fournier MD [STAFF PHYSICIAN] - 1-2 days Time of Disposition: 17:41
== END 2019-09-02 18:10 | disposition home or self-care (01) ==
LOC: EC 16:57
DX: R19.7 Diarrhea, unspecified (principal); R10.9 Unspecified abdominal pain; F17.200 Nicotine dependence, unspecified, uncomplicated
CPT/HCPCS: 99283

== ENCOUNTER 2022-08-05 10:25 | Emergency (ER) | payer SELFPAY ==
[2022-08-05 10:29] VITALS: PULSE 90; TEMP 98
--- NOTE | 2022-08-05 10:43 | ED ---
General Adult HPI - General Chief complaint: Recheck/Abnormal Lab/Rx Stated complaint: facial swelling Time Seen by Provider: 08/05/22 10:26 Source: patient, RN notes reviewed, old records reviewed Mode of arrival: ambulatory Limitations: no limitations - History of Present Illness Initial comments: 42-year-old male presenting for evaluation of facial swelling. Patient states he's had this at least 100 times in the past and he states that it responds well to betamethasone topical. He is requesting refill of this prescription. He states that this is been ongoing for more than 20 years. Patient does have this swelling on the right side of his face and has poor dentition and is awaiting dental implants. No fever. No tongue or lip swelling. No difficulty breathing. - Related Data Home Medications Medication Instructions Recorded Confirmed Ibuprofen [Motrin Ib] 400 mg PO Q6H PRN 12/09/18 12/09/18 Previous Rx's Medication Instructions Recorded Dicyclomine [Bentyl] 10 mg PO TID PRN #25 capsule 09/02/19 Amoxic-Pot Clav 875-125Mg 1 tab PO Q12HR 10 Days #20 tab 08/05/22 [Augmentin 875-125] Betamethasone Dipropionate 1 applic TOPICAL BID #15 gm 08/05/22 [Diprolene AF 0.05% Cream] Allergies Allergy/AdvReac Type Severity Reaction Status Date / Time No Known Allergies Allergy Verified 08/05/22 10:29 Review of Systems ROS Statement: Those systems with pertinent positive or pertinent negative responses have been documented in the HPI. ROS Other: All systems not noted in ROS Statement are negative. Past Medical History Past Medical History: No Reported History Additional Past Medical History / Comment(s): chronic back pain, IBS History of Any Multi-Drug Resistant Organisms: None Reported Past Surgical History: Orthopedic Surgery Additional Past Surgical History / Comment(s): rt hand, vasectomy Past Psychological History: No Psychological Hx Reported Smoking Status: Current every day smoker Past Alcohol Use History: None Reported Past Drug Use History: Marijuana General Exam Limitations: no limitations General appearance: alert, in no apparent distress Head exam: Present: atraumatic, normocephalic Eye exam: Present: normal appearance, PERRL ENT exam: Present: other (Poor dentition with dental caries right upper molar. Soft tissue swelling and erythema predominantly on the right side of the face) Respiratory exam: Present: normal lung sounds bilaterally. Absent: respiratory distress Cardiovascular Exam: Present: regular rate, normal rhythm GI/Abdominal exam: Present: soft. Absent: distended, tenderness, guarding Extremities exam: Present: normal inspection, normal capillary refill. Absent: pedal edema Neurological exam: Present: alert, oriented X3, CN II-XII intact. Absent: motor sensory deficit Psychiatric exam: Present: normal affect, normal mood Course Vital Signs 08/05/22 10:26 Temperature 98 F Pulse Rate 90 Respiratory 20 Rate Blood Pressure 119/83 O2 Sat by Pulse 96 Oximetry Medical Decision Making - Medical Decision Making Was pt. sent in by a medical professional or institution (, [facility], [facility], urgent care, hospital, or half-way...) When possible be specific @ -No Did you speak to anyone other than the patient for history (EMS, parent, family, police, friend...)? What history was obtained from this source @ -No Did you review nursing and triage notes (agree or disagree)? Why? @ -I reviewed and agree with nursing and triage notes Were old charts reviewed (outside hosp., previous admission, EMS record, old EKG, old radiological studies, urgent care reports/EKG's, half-way records)? Report findings @ -No old charts were reviewed Differential Diagnosis (chest pain, altered mental status, abdominal pain women, abdominal pain men, vaginal bleeding, weakness, fever, dyspnea, syncope, headache, dizziness, GI bleed, back pain, seizure, CVA, palpatations, mental health, musculoskeletal)? @ -Facial swelling, cellulitis, rosacea, dental abscess EKG interpreted by me (3pts min.). @ -As above X-rays interpreted by me (1pt min.). @ -None done CT interpreted by me (1pt min.). @ -None done U/S interpreted by me (1pt. min.). @ -None done What testing was considered but not performed or refused? (CT, X-rays, U/S, labs)? Why? @ -None What meds were considered but not given or refused? Why? @ -None Did you discuss the management of the patient with other professionals (professionals i.e. [facility]REW Mckeon, [facility]CHER, lab, RT, psych nurse, social insurance administrator, furniture designer, teacher, police officer, caseworker protective services)? Give summary @ -No Was smoking cessation discussed for >3mins.? @ -No Was critical care preformed (if so, how long)? @ -No Were there social determinants of health that impacted care today? How? (Homelessness, low income, unemployed, alcoholism, drug addiction, transportation, low edu. Level, literacy, decrease access to med. care, intermediate, rehab)? @ -No Was there de-escalation of care discussed even if they declined (Discuss DNR or withdrawal of care, Hospice)? DNR status @ -No What co-morbidities impacted this encounter? (DM, HTN, Smoking, COPD, CAD, Cancer, CVA, ARF, Chemo, Hep., AIDS, mental health diagnosis, sleep apnea, mor bid obesity)? @ -None Was patient admitted / discharged? Hospital course, mention meds given and route, prescriptions, significant lab abnormalities, going to OR and other pertinent info. @ Patient will be prescribed refill for requested medication but he should follow with his primary care provider regarding further medication. Additional ly he is covered with antibiotics as I suspect that the facial swelling may be related to dental infection. He states he has no component with his dentist. Undiagnosed new problem with uncertain prognosis? @ -No Drug Therapy requiring intensive monitoring for toxicity (Heparin, Nitro, Insulin, Cardizem)? @ -No Were any procedures done? @ -No Diagnosis/symptom? @ Patient's swelling, poor dentition Acute, or Chronic, or Acute on Chronic? @ Acute on chronic Uncomplicated (without systemic symptoms) or Complicated (systemic symptoms)? @ -default Side effects of treatment? @ -No Exacerbation, Progression, or Severe Exacerbation? @ -No Poses a threat to life or bodily function? How? (Chest pain, [place], [place], pneumonia, PE, COPD, DKA, ARF, appy, cholecystitis, CVA, Diverticulitis, Homicidal, Suicidal, threat to staff... and all critical care pts) @ Low risk Disposition Clinical Impression: Facial swelling, Poor dentition Disposition: HOME SELF-CARE Condition: Good Instructions (If sedation given, give patient instructions): Dental Abscess (ED) Additional Instructions: Please follow up with your dentist and primary care provider. Prescriptions: Amoxic-Pot Clav 875-125Mg [Augmentin 875-125] 1 tab PO Q12HR 10 Days #20 tab Betamethasone Dipropionate [Diprolene AF 0.05% Cream] 1 applic TOPICAL BID #15 gm Is patient prescribed a controlled substance at d/c from ED?: No Referrals: None,Stated [Primary Care Provider] - 1-2 days Time of Disposition: 10:42
[2022-08-05 10:53] VITALS: BP 120/83; RESP 18
== END 2022-08-05 11:04 | disposition home or self-care (01) ==
LOC: EC 10:25
DX: R22.0 Localized swelling, mass and lump, head (principal); K08.9 Disorder of teeth and supporting structures, unspecified; F17.200 Nicotine dependence, unspecified, uncomplicated; F12.90 Cannabis use, unspecified, uncomplicated
CPT/HCPCS: 99283